=== PATIENT | male | born 1960 | race Caucasian/White ===

== ENCOUNTER 2021-01-14 14:04 | Emergency (ER) | payer OTHER ==
--- NOTE | 2021-01-14 14:57 | XR ---
EXAMINATION TYPE: XR chest 2V DATE OF EXAM: 01/14/2021 COMPARISON: NONE TECHNIQUE: PA and lateral views submitted. HISTORY: Cough FINDINGS: Heart size upper limits of normal with no pleural effusion or pneumothorax. Biapical pleural thickeni ng. Hypertrophic change of the spine.. Coarsened interstitium with subsegmental consolidation at the left lung base. IMPRESSION: 1. Correlate for interstitial pneumonia with left basilar subsegmental consolidation..
[2021-01-14] MEDS ORDERED: ALBUTEROL HFA INHALER INHALATION STA (15:30)
[2021-01-14] MEDS ORDERED: SODIUM CHLORIDE 0.9% 500 ML 500 ML IV STA (15:30)
[2021-01-14] MEDS ORDERED: SODIUM CHLORIDE 0.9% 1,000 ML IV STA (15:30)
[2021-01-14] MEDS ORDERED: DEXAMETHASONE SOD PHOSPHATE 10 MG/ML 1 ML VIAL IV STA (15:31)
--- NOTE | 2021-01-14 15:47 | ED ---
URI HPI - General Chief Complaint: Upper Respiratory Infection Stated Complaint: COVID+,Sent by [facility]cpwan blood clot Time Seen by Provider: 01/14/21 15:18 Source: patient Mode of arrival: ambulatory Limitations: no limitations - History of Present Illness Initial Comments: This 60-year-old male presents complaining of del real virus infection and related symptoms. He states that the symptoms started approximately 10 days ago. He tested +9 days ago. Family members have similar. He states that he is had a slight nonproductive cough. He has had some mild intermittent dyspnea. He does complain of significant fatigue and states that he feels out of sorts mentally at times. He complains of significant sweating episodes but denies any actual fever. There is been no loss of taste or loss of smell. His symptoms are worse with exertion. He denies any nausea vomiting or diarrhea. He has had a decrease in his appetite. He complains of a mild chest burning sensation intermittently over the past 11 days. He has been taking aspirin as well as Tylenol. He denies any other medications thus far. No other complaints or modifying factors. He denies any known pulmonary conditions or cardiac disease. He does have sleep apnea and utilizes a CPAP machine at at bedtime. - Related Data Previous Rx's Medication Instructions Recorded Albuterol Sulfate [Albuterol 4 puff PO Q4H PRN #2 inhaler 01/14/21 Sulfate Hfa] Azithromycin [Zithromax Z-pack] 0 mg PO DIRECTED #6 tab 01/14/21 Dexamethasone [Decadron] 6 mg PO DAILY #7 tablet 01/14/21 Allergies Allergy/AdvReac Type Severity Reaction Status Date / Time No Known Allergies Allergy Verified 01/14/21 14:40 Review of Systems ROS Statement: Those systems with pertinent positive or pertinent negative responses have been documented in the HPI. ROS Other: All systems not noted in ROS Statement are negative. Past Medical History Past Medical History: Diabetes Mellitus, Hypertension History of Any Multi-Drug Resistant Organisms: None Reported Past Surgical History: Appendectomy, Orthopedic Surgery Past Psychological History: No Psychological Hx Reported Smoking Status: Never smoker Past Alcohol Use History: Rare Past Drug Use History: None Reported General Exam - General Exam Comments Initial Comments: Constitutional: Alert and oriented, no apparent distress Vitals: Reviewed, please see nursing notes HEENT: No gross trauma identified, trachea midline, no respiratory distress Neck: No tenderness, good range of motion Heart: Regular rate and rhythm without murmur Lungs: Clear to auscultation bilaterally, no wheezing rhonchi or rales. Slightly diminished breath sounds. Abdomen: No tenderness or peritoneal signs noted, nondistended Back: No tenderness Neurologic: No gross sensory or motor deficits identified Integumentary: No rash or change in pigmentation Musculoskeletal: No leg tenderness or swelling. Psychiatric: Alert and oriented, appropriate mood and affect Limitations: no limitations Course Vital Signs 01/14/21 14:31 Temperature 98.3 F Pulse Rate 67 Respiratory 17 Rate Blood Pressure 137/84 O2 Sat by Pulse 96 Oximetry Medical Decision Making - Medical Decision Making The patient was seen and examined. All diagnostics are reviewed. His tested come back positive. His chest x-ray does show evidence of infiltrates. An IV is established and he is hydrated. He also receives Decadron intravenously as well as albuterol HFA's. The laboratory was all essentially within normal limits except for an elevation of the d-dimer. A CT angiogram of the chest was done and there is no evidence of pulmonary embolism but there does appear to be extensive infiltrative disease consistent with Covid. The patient's oxygenation status has remained stable at 96% and it is felt as though he is stable for discharge home. Nevertheless, return parameters are discussed in detail. It is recommended that he obtain a home pulse oximeter and return if oxygenation is lower than 90%. He will be prescribed Zithromax, dexamethasone, and albuterol HFA. He is agreeable with this plan. - Lab Data Result diagrams: 01/14/21 16:00 01/14/21 16:00 Lab Results 01/14/21 01/14/21 01/14/21 Range/Units 14:49 16:00 16:00 WBC 4.6 (3.8-10.6) k/uL RBC 5.56 (4.30-5.90) m/uL Hgb 17.5 (13.0-17.5) gm/dL Hct 52.1 (39.0-53.0) % MCV 93.7 (80.0-100.0) fL MCH 31.4 (25.0-35.0) pg MCHC 33.6 (31.0-37.0) g/dL RDW 14.1 (11.5-15.5) % Plt Count 150 (150-450) k/uL MPV 8.0 Neutrophils % 68 % Lymphocytes % 23 % Monocytes % 6 % Eosinophils % 0 % Basophils % 1 % Neutrophils # 3.1 (1.3-7.7) k/uL Lymphocytes # 1.0 (1.0-4.8) k/uL Monocytes # 0.3 (0-1.0) k/uL Eosinophils # 0.0 (0-0.7) k/uL Basophils # 0.0 (0-0.2) k/uL PT 10.3 (9.0-12.0) sec INR 1.0 (<1.2) APTT 25.9 (22.0-30.0) sec D-Dimer 0.97 H (<0.60) mg/L FEU Sodium (137-145) mmol/L Potassium (3.5-5.1) mmol/L Chloride (98-107) mmol/L Carbon Dioxide (22-30) mmol/L Anion Gap mmol/L BUN (9-20) mg/dL Creatinine (0.66-1.25) mg/dL Est GFR (CKD-EPI)AfAm (>60 ml/min/1.73 sqM) Est GFR (CKD-EPI)NonAf (>60 ml/min/1.73 sqM) Glucose (74-99) mg/dL Calcium (8.4-10.2) mg/dL Total Bilirubin (0.2-1.3) mg/dL AST (17-59) U/L ALT (4-49) U/L Alkaline Phosphatase (38-126) U/L Troponin I (0.000-0.034) ng/mL Total Protein (6.3-8.2) g/dL Albumin (3.5-5.0) g/dL Coronavirus (PCR) Detected A (Not Detectd) 01/14/21 01/14/21 Range/Units 16:00 16:00 WBC (3.8-10.6) k/uL RBC (4.30-5.90) m/uL Hgb (13.0-17.5) gm/dL Hct (39.0-53.0) % MCV (80.0-100.0) fL MCH (25.0-35.0) pg MCHC (31.0-37.0) g/dL RDW (11.5-15.5) % Plt Count (150-450) k/uL MPV Neutrophils % % Lymphocytes % % Monocytes % % Eosinophils % % Basophils % % Neutrophils # (1.3-7.7) k/uL Lymphocytes # (1.0-4.8) k/uL Monocytes # (0-1.0) k/uL Eosinophils # (0-0.7) k/uL Basophils # (0-0.2) k/uL PT (9.0-12.0) sec INR (<1.2) APTT (22.0-30.0) sec D-Dimer (<0.60) mg/L FEU Sodium 138 (137-145) mmol/L Potassium 4.0 (3.5-5.1) mmol/L Chloride 101 (98-107) mmol/L Carbon Dioxide 25 (22-30) mmol/L Anion Gap 12 mmol/L BUN 21 H (9-20) mg/dL Creatinine 1.20 (0.66-1.25) mg/dL Est GFR (CKD-EPI)AfAm 76 (>60 ml/min/1.73 sqM) Est GFR (CKD-EPI)NonAf 66 (>60 ml/min/1.73 sqM) Glucose 96 (74-99) mg/dL Calcium 9.0 (8.4-10.2) mg/dL Total Bilirubin 0.6 (0.2-1.3) mg/dL AST 67 H (17-59) U/L ALT 43 (4-49) U/L Alkaline Phosphatase 62 (38-126) U/L Troponin I <0.012 (0.000-0.034) ng/mL Total Protein 7.7 (6.3-8.2) g/dL Albumin 4.4 (3.5-5.0) g/dL Coronavirus (PCR) (Not Detectd) Disposition Clinical Impression: Pneumonia due to COVID-19 virus, COVID-19, Chest pain Disposition: HOME SELF-CARE Condition: Good Instructions (If sedation given, give patient instructions): Coronavirus Disease 2019 (COVID-19), Viral Pneumonia (ED) Prescriptions: Albuterol Sulfate [Albuterol Sulfate Hfa] 4 puff PO Q4H PRN #2 inhaler PRN Reason: Shortness Of Breath Dexamethasone [Decadron] 6 mg PO DAILY #7 tablet Azithromycin [Zithromax Z-pack] 0 mg PO DIRECTED #6 tab Is patient prescribed a controlled substance at d/c from ED?: No Referrals: Junior Schwartz MD [Primary Care Provider] - 1-2 days Time of Disposition: 18:54
[2021-01-14 16:40] LABS: Basophils % (A) 1 %; Eosinophils % (A) 0 %; HCT 52.1 % (39.0-53.0); HGB 17.5 gm/dL (13.0-17.5); Lymphocytes % (A) 23 %; MCH 31.4 pg (25.0-35.0); MCHC 33.6 g/dL (31.0-37.0); MCV 93.7 fL (80.0-100.0); Monocytes # (A) 0.3 k/uL (0-1.0); Monocytes % (A) 6 %; Neutrophils # (A) 3.1 k/uL (1.3-7.7); Neutrophils % (A) 68 %; Platelet Count 150 k/uL (150-450); RBC 5.56 m/uL (4.30-5.90); RDW 14.1 % (11.5-15.5); WBC 4.6 k/uL (3.8-10.6)
[2021-01-14 16:56] LABS: Albumin 4.4 g/dL (3.5-5.0); Total Bilirubin 0.6 mg/dL (0.2-1.3); Total Protein 7.7 g/dL (6.3-8.2)
[2021-01-14 17:01] LABS: Partial Thromboplastin Time 25.9 sec (22.0-30.0); Prothrombin Time 10.3 sec (9.0-12.0)
--- NOTE | 2021-01-14 18:34 | CT ---
EXAMINATION TYPE: CT angio chest DATE OF EXAM: 01/14/2021 COMPARISON: None HISTORY: Elevated d-dimer, +covid. CT DLP: 913.3 mGycm Automated exposure control for dose reduction was used. CONTRAST: Performed with IV Contrast, patient injected with 100ml mL of Isovue 370. Images obtained from the thoracic inlet to the diaphragm with IV contrast and 3-D post processed imag es. There is extensive patchy groundglass pulmonary interstitial infiltrates. There is some coalescent de nsity at the lung bases. Heart is enlarged. There is no pericardial effusion. There is no pleural eff usion. There are no hilar masses. There is no mediastinal adenopathy. 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 There is no dissection. I see no evidence of filling defect in the pulmonary arteries. There is gynecomastia. Thoracic spine is intact. Sternum is intact. IMPRESSION: No evidence of pulmonary embolism. Bilateral extensive predominantly interstitial pneumonia. Cardiome waylon. No pulmonary mass.
[2021-01-14 19:32] VITALS: BP 142/87; PULSE 84; RESP 18; TEMP 99.6
== END 2021-01-14 19:32 | disposition home or self-care (01) ==
LOC: EC 14:04
DX: U07.1 COVID-19 (principal); J12.82 Pneumonia due to coronavirus disease 2019; I10 Essential (primary) hypertension; E11.9 Type 2 diabetes mellitus without complications
CPT/HCPCS: 36415; 94640; 93005; 85379; 80053; 84484; 85025; 85610; 85730; 87635; 71046; 71275; 99285; 96374; 96361; J1100; Q9967

== ENCOUNTER 2021-01-26 16:40 | Emergency (ER) | payer OTHER ==
[2021-01-26 16:45] VITALS: TEMP 98.3
--- NOTE | 2021-01-26 17:49 | ED ---
ENT HPI - General Chief complaint: ENT Stated complaint: nosebleed Time Seen by Provider: 01/26/21 16:59 Source: patient, family, RN notes reviewed Mode of arrival: ambulatory Limitations: no limitations - History of Present Illness Initial comments: 60-year-old white male patient, alert and oriented 4 presents to the emergency room with his complaining of bilateral epistaxis that started at 7:00 this morning. Patient states he has been trying homemade packing and unable to stop it is just redirected the flow andswallowing the blood. Patient states he does not want to try to spit it out for fever aspiration. States he just got over Covid pneumonia, symptoms started on January 04 has been cleared by his primary care doctor. Patient has a history of [id number] diabetes, hypertension and has been taking his medications but states that his blood pressure has been labile. Patient states he was being treated when dx with covid with a full dose aspirin and 3 L nasal cannula at home. PMD cleared him on Thursday so now only taking 81 mg aspirin. Patient denies any hematochezia or hematemesis. Denies any headache or fevers. Denies any dizziness or shortness of breath. MD complaint: epistaxis -: hour(s) (0700) Consistency: constant Improves with: none Context-Epistaxis: aspirin use, history of similar (gorge 2005) - Related Data Previous Rx's Medication Instructions Recorded Albuterol Sulfate [Albuterol 4 puff PO Q4H PRN #2 inhaler 01/14/21 Sulfate Hfa] Azithromycin [Zithromax Z-pack] 0 mg PO DIRECTED #6 tab 01/14/21 Dexamethasone [Decadron] 6 mg PO DAILY #7 tablet 01/14/21 Cephalexin [Keflex] 500 mg PO Q6HR 7 Days #28 cap 01/26/21 Allergies Allergy/AdvReac Type Severity Reaction Status Date / Time No Known Allergies Allergy Verified 01/26/21 16:45 Review of Systems ROS Statement: Those systems with pertinent positive or pertinent negative responses have been documented in the HPI. ROS Other: All systems not noted in ROS Statement are negative. Past Medical History Past Medical History: Diabetes Mellitus, Hypertension, Pneumonia Additional Past Medical History / Comment(s): covid 01/23 History of Any Multi-Drug Resistant Organisms: None Reported Past Surgical History: Appendectomy, Orthopedic Surgery Past Psychological History: No Psychological Hx Reported Smoking Status: Never smoker Past Alcohol Use History: Rare Past Drug Use History: None Reported General Exam Limitations: no limitations General appearance: alert, in no apparent distress Head exam: Present: atraumatic, normocephalic, normal inspection Eye exam: Present: normal appearance, PERRL, EOMI. Absent: scleral icterus, conjunctival injection, periorbital swelling ENT exam: Present: mucous membranes moist (blood in oropharynx), other (packing to left nostril from home made of tissue, nose clamp in place since arrival to ER) Neck exam: Present: normal inspection, full ROM. Absent: tenderness, meningismus, lymphadenopathy, thyromegaly Respiratory exam: Present: normal lung sounds bilaterally, rales (bases b/l). Absent: respiratory distress, wheezes, rhonchi, stridor Cardiovascular Exam: Present: regular rate, normal rhythm, normal heart sounds. Absent: systolic murmur, diastolic murmur, rubs, gallop, clicks GI/Abdominal exam: Present: soft, normal bowel sounds. Absent: distended, tenderness, guarding, rebound, rigid Neurological exam: Present: alert, oriented X3 Psychiatric exam: Present: normal affect, normal mood, agitated Skin exam: Present: warm, dry, intact, normal color. Absent: rash Course Vital Signs 01/26/21 01/26/21 16:42 19:06 Temperature 98.3 F Pulse Rate 78 57 L Respiratory 24 18 Rate Blood Pressure 148/86 128/92 O2 Sat by Pulse 94 L 94 L Oximetry - Reevaluation(s) Reevaluation #1: 01/26/21 18:35 Nasal packing to left nostril intact, right nostril not bleeding. There is no blood draining into the oropharynx. We'll continue to monitor Time: 18:35 Procedures - Procedures Initial comment: nasal packing placed to left nostril Medical Decision Making - Medical Decision Making Visualization of left and right nostril shows that there is bleeding to the left side anteriorly no bleeding to the right nostril. Packing to left nostril placed and bleeding controlled. Patient agreeable to being discharged home and follow up with primary care doctor and ENT Dr Moctezuma Thursday. Case discussed with Dr. Bradley, will place patient on Keflex and have him return to emergency room for increased bleeding. Disposition Clinical Impression: Anterior epistaxis Disposition: HOME SELF-CARE Condition: Good Instructions (If sedation given, give patient instructions): Nosebleed (ED) Additional Instructions: Follow-up with Dr. Vera ENT next week and take antibiotics as prescribed untiil packing removed. Prescriptions: Cephalexin [Keflex] 500 mg PO Q6HR 7 Days #28 cap Is patient prescribed a controlled substance at d/c from ED?: No Referrals: Junior Schwartz MD [Primary Care Provider] - 1-2 days Jules Moctezuma MD [STAFF PHYSICIAN] - 1-2 days Time of Disposition: 19:35
[2021-01-26 19:11] VITALS: RESP 18
[2021-01-26 19:44] VITALS: BP 131/90; PULSE 76
== END 2021-01-26 19:44 | disposition home or self-care (01) ==
LOC: EC 16:40
DX: R04.0 Epistaxis (principal); E11.9 Type 2 diabetes mellitus without complications; I10 Essential (primary) hypertension
CPT/HCPCS: 99283

== ENCOUNTER 2021-05-24 21:21 | Inpatient (IN) | payer OTHER ==
[2021-05-24] MEDS ORDERED: DILTIAZEM DRIP BOLUS FROM BAG 1 MG SOLN IV ONE (21:30)
[2021-05-24] MEDS ORDERED: SODIUM CHLORIDE 0.9% 1,000 ML IV STA ×2 (21:30)
--- NOTE | 2021-05-24 21:54 | ED ---
Arrhythmia/Palpitations HPI - General Chief Complaint: Chest Pain Stated Complaint: SVT Time Seen by Provider: 05/24/21 21:24 Source: patient, EMS, RN notes reviewed, old records reviewed Mode of arrival: EMS Limitations: no limitations - History of Present Illness Initial Comments: This is a 60-year-old male to the ER for evaluation today. She presents for evaluation regards to elevated heart rate and not feeling well. Patient is found to be in SVT. Patient is transferred from his primary care doctor's office to the ER for evaluation. Patient has no current chest pain but he has had chest pain with this event in the past. Patient does have diaphoresis and shortness of breath. Patient was admitted at [facility] yesterday for similar complaints did have a stress test was discharged home MD Complaint: rapid heart beat, "heart racing", palpitations -: hour(s) Context: occurred during rest Arrhythmia History: SVT Associated Symptoms: chest pain, diaphoresis Treatments Prior to Arrival: other (none) - Related Data Home Medications Medication Instructions Recorded Confirmed Albuterol Nebulized [Ventolin 3 ml INHALATION RT-TID 05/24/21 05/24/21 Nebulized] Albuterol Sulfate [Albuterol 2 puff PO QID PRN 05/24/21 05/24/21 Sulfate Hfa] Aspirin [[place] Aspirin EC] 81 mg PO DAILY 05/24/21 05/24/21 Atorvastatin [Lipitor] 10 mg PO DAILY 05/24/21 05/24/21 Azelastine HCl [Astepro] 2 spray NASAL BID 05/24/21 05/24/21 Budesonide-Formot 160-4.5 Mcg 2 puff INHALATION RT-BID 05/24/21 05/24/21 [Symbicort 160-4.5 Mcg Inhaler] Cetirizine HCl [Zyrtec] 10 mg PO DAILY 05/24/21 05/24/21 Empagliflozin [Jardiance] 25 mg PO DAILY 05/24/21 05/24/21 Ibuprofen [Motrin Ib] 200 mg PO Q6H PRN 05/24/21 05/24/21 Krill/[place]-3/Dha/Epa/Lipids 1 tab PO DAILY 05/24/21 05/24/21 [Krill Oil 350 mg Softgel] Lansoprazole [Prevacid] 30 mg PO DAILY 05/24/21 05/24/21 Metoprolol Tartrate [Lopressor] 25 mg PO BID 05/24/21 05/24/21 Mupirocin [Mupirocin 2%] 1 applic NASAL BID 05/24/21 05/24/21 Nystatin 100,000Unit/gm Cream 1 applic TOPICAL BID 05/24/21 05/24/21 [Mycostatin Cream] lisinopriL [Zestril] 20 mg PO DAILY 05/24/21 05/24/21 Allergies Allergy/AdvReac Type Severity Reaction Status Date / Time No Known Allergies Allergy Verified 05/24/21 23:42 Review of Systems ROS Statement: Those systems with pertinent positive or pertinent negative responses have been documented in the HPI. ROS Other: All systems not noted in ROS Statement are negative. Past Medical History Past Medical History: Diabetes Mellitus, Hypertension, Pneumonia Additional Past Medical History / Comment(s): covid 01/23 History of Any Multi-Drug Resistant Organisms: None Reported Past Surgical History: Appendectomy, Orthopedic Surgery Past Psychological History: No Psychological Hx Reported Smoking Status: Former smoker Past Alcohol Use History: Rare Past Drug Use History: None Reported General Exam Limitations: no limitations General appearance: alert, in no apparent distress, anxious Head exam: Present: atraumatic, normocephalic, normal inspection Eye exam: Present: normal appearance, PERRL, EOMI. Absent: scleral icterus, conjunctival injection, periorbital swelling ENT exam: Present: normal exam, mucous membranes dry, mucous membranes moist Neck exam: Present: normal inspection. Absent: tenderness, meningismus, lymphadenopathy Respiratory exam: Present: normal lung sounds bilaterally. Absent: respiratory distress, wheezes, rales, rhonchi, stridor Cardiovascular Exam: Present: tachycardia, irregular rhythm, normal heart sounds. Absent: systolic murmur, diastolic murmur, rubs, gallop, clicks GI/Abdominal exam: Present: soft, normal bowel sounds. Absent: distended, tenderness, guarding, rebound, rigid Extremities exam: Present: normal inspection, full ROM, normal capillary refill. Absent: tenderness, pedal edema, joint swelling, calf tenderness Back exam: Present: normal inspection Neurological exam: Present: alert, oriented X3, CN II-XII intact Psychiatric exam: Present: normal affect, normal mood Skin exam: Present: warm, dry, intact, normal color. Absent: rash Course Vital Signs 05/24/21 05/24/21 05/24/21 21:25 21:45 22:00 Temperature 98.3 F Pulse Rate 152 H 73 150 H Respiratory 18 18 18 Rate Blood Pressure 143/112 117/83 131/87 O2 Sat by Pulse 96 96 96 Oximetry 05/24/21 05/24/21 05/24/21 22:15 22:30 22:32 Temperature Pulse Rate 141 H 140 H 54 L Respiratory 18 18 18 Rate Blood Pressure 118/89 116/82 114/79 O2 Sat by Pulse 96 94 L Oximetry 05/24/21 05/25/21 23:00 00:02 Temperature 98.2 F Pulse Rate 52 L Respiratory 18 18 Rate Blood Pressure 112/69 118/75 O2 Sat by Pulse 96 Oximetry - Reevaluation(s) Reevaluation #1: 05/25/21 00:38 Medical record is reviewed Reevaluation #2: 05/25/21 00:38 Patient has difficulty control SVT in the ER with Cardizem symptoms do improve Reevaluation #3: 05/25/21 00:41 Patient informed results and questions answered - Consultations Consultation #1: Spoke with cardiology regarding SVT and treatment plan, Consultation #2: Spoke with EM regarding admission there agreeable EKG Findings - EKG Comments: EKG Findings:: EKG shows SVT 152 QRS 92 QTC 480 - EKG Results: EKG: interpreted by ERMD EKG shows: sinus rhythm (EKG shows sinus rhythm 79 DE 212 QRS 72 QTC 431) Medical Decision Making - Medical Decision Making 60 male DF for evaluation, he is on recurrent evaluation of SVT. Patient has SVT is resolved here in the ER looks to be underlying atrial fibrillation, patient be admitted for likely heart catheterization in the morning - Lab Data Result diagrams: 05/24/21 22:15 05/24/21 22:15 Lab Results 05/24/21 05/24/21 05/24/21 Range/Units 22:15 22:15 22:15 WBC 12.0 H (3.8-10.6) k/uL RBC 5.66 (4.30-5.90) m/uL Hgb 18.4 H (13.0-17.5) gm/dL Hct 53.8 H (39.0-53.0) % MCV 95.1 (80.0-100.0) fL MCH 32.5 (25.0-35.0) pg MCHC 34.2 (31.0-37.0) g/dL RDW 13.7 (11.5-15.5) % Plt Count 189 (150-450) k/uL MPV 8.5 Neutrophils % 74 % Lymphocytes % 13 % Monocytes % 8 % Eosinophils % 3 % Basophils % 1 % Neutrophils # 8.9 H (1.3-7.7) k/uL Lymphocytes # 1.5 (1.0-4.8) k/uL Monocytes # 1.0 (0-1.0) k/uL Eosinophils # 0.3 (0-0.7) k/uL Basophils # 0.1 (0-0.2) k/uL PT 10.6 (9.0-12.0) sec INR 1.0 (<1.2) APTT 24.8 (22.0-30.0) sec Sodium 136 L (137-145) mmol/L Potassium 4.6 (3.5-5.1) mmol/L Chloride 105 (98-107) mmol/L Carbon Dioxide 21 L (22-30) mmol/L Anion Gap 10 mmol/L BUN 14 (9-20) mg/dL Creatinine 0.91 (0.66-1.25) mg/dL Est GFR (CKD-EPI)AfAm >90 (>60 ml/min/1.73 sqM) Est GFR (CKD-EPI)NonAf >90 (>60 ml/min/1.73 sqM) Glucose 118 H (74-99) mg/dL Calcium 9.4 (8.4-10.2) mg/dL Phosphorus 3.5 (2.5-4.5) mg/dL Magnesium 2.1 (1.6-2.3) mg/dL Total Bilirubin 0.4 (0.2-1.3) mg/dL AST 39 (17-59) U/L ALT 25 (4-49) U/L Alkaline Phosphatase 65 (38-126) U/L Creatine Kinase 184 H (55-170) U/L CK-MB (CK-2) (0.0-2.4) ng/mL Troponin I (0.000-0.034) ng/mL NT-Pro-B Natriuret Pep pg/mL Total Protein 7.2 (6.3-8.2) g/dL Albumin 4.3 (3.5-5.0) g/dL TSH 5.290 H (0.465-4.680) mIU/L 05/24/21 05/24/21 Range/Units 22:15 22:15 WBC (3.8-10.6) k/uL RBC (4.30-5.90) m/uL Hgb (13.0-17.5) gm/dL Hct (39.0-53.0) % MCV (80.0-100.0) fL MCH (25.0-35.0) pg MCHC (31.0-37.0) g/dL RDW (11.5-15.5) % Plt Count (150-450) k/uL MPV Neutrophils % % Lymphocytes % % Monocytes % % Eosinophils % % Basophils % % Neutrophils # (1.3-7.7) k/uL Lymphocytes # (1.0-4.8) k/uL Monocytes # (0-1.0) k/uL Eosinophils # (0-0.7) k/uL Basophils # (0-0.2) k/uL PT (9.0-12.0) sec INR (<1.2) APTT (22.0-30.0) sec Sodium (137-145) mmol/L Potassium (3.5-5.1) mmol/L Chloride (98-107) mmol/L Carbon Dioxide (22-30) mmol/L Anion Gap mmol/L BUN (9-20) mg/dL Creatinine (0.66-1.25) mg/dL Est GFR (CKD-EPI)AfAm (>60 ml/min/1.73 sqM) Est GFR (CKD-EPI)NonAf (>60 ml/min/1.73 sqM) Glucose (74-99) mg/dL Calcium (8.4-10.2) mg/dL Phosphorus (2.5-4.5) mg/dL Magnesium (1.6-2.3) mg/dL Total Bilirubin (0.2-1.3) mg/dL AST (17-59) U/L ALT (4-49) U/L Alkaline Phosphatase (38-126) U/L Creatine Kinase (55-170) U/L CK-MB (CK-2) 1.2 (0.0-2.4) ng/mL Troponin I 0.050 H* (0.000-0.034) ng/mL NT-Pro-B Natriuret Pep 314 pg/mL Total Protein (6.3-8.2) g/dL Albumin (3.5-5.0) g/dL TSH (0.465-4.680) mIU/L Critical Care Time Critical Care Time: Yes Total Critical Care Time: 31 Disposition Clinical Impression: Chest pain, SVT (supraventricular tachycardia), Atrial fibrillation with RVR Disposition: ADMITTED IP TO THIS HOSP Condition: Serious Is patient prescribed a controlled substance at d/c from ED?: No
[2021-05-24] MEDS: METOPROLOL TARTRATE 5 MG/5 ML VIAL IVP STA ×2 (21:59→22:14)
[2021-05-24] MEDS: DILTIAZEM 125 MG in SODIUM CHLORIDE 0.9% 100 ML IV SCH (22:31)
[2021-05-24 22:46] LABS: Basophils # (A) 0.1 k/uL (0-0.2); Basophils % (A) 1 %; Eosinophils # (A) 0.3 k/uL (0-0.7); Eosinophils % (A) 3 %; HCT 53.8 % (39.0-53.0); HGB 18.4 gm/dL (13.0-17.5); Lymphocytes # (A) 1.5 k/uL (1.0-4.8); Lymphocytes % (A) 13 %; MCH 32.5 pg (25.0-35.0); MCHC 34.2 g/dL (31.0-37.0); MCV 95.1 fL (80.0-100.0); Mean Platelet Volume 8.5; Monocytes % (A) 8 %; Neutrophils # (A) 8.9 k/uL (1.3-7.7); Neutrophils % (A) 74 %; Platelet Count 189 k/uL (150-450); RBC 5.66 m/uL (4.30-5.90); RDW 13.7 % (11.5-15.5)
[2021-05-24 22:54] LABS: ALT 25 U/L (4-49); African American GFR (CKD) >90 (>60 ml/min/1.73 sqM); Albumin 4.3 g/dL (3.5-5.0); Anion Gap 10 mmol/L; Blood Urea Nitrogen 14 mg/dL (9-20); Calcium 9.4 mg/dL (8.4-10.2); Carbon Dioxide 21 mmol/L (22-30); Chloride 105 mmol/L (98-107); Glucose 118 mg/dL (74-99); Non-African American GFR(CKD) >90 (>60 ml/min/1.73 sqM); Sodium 136 mmol/L (137-145); Total Bilirubin 0.4 mg/dL (0.2-1.3); Total Protein 7.2 g/dL (6.3-8.2)
[2021-05-24 22:56] LABS: Partial Thromboplastin Time 24.8 sec (22.0-30.0); Prothrombin Time 10.6 sec (9.0-12.0)
[2021-05-24] MEDS ORDERED: NITROGLYCERIN SL TABS 0.4 MG TAB SUBLINGUAL PRN (22:58)
[2021-05-24] MEDS ORDERED: HEPARIN SODIUM 1,000 UN/ML (10ML VL) IV ONE (22:58)
[2021-05-24] MEDS ORDERED: ASPIRIN 81 MG PO STA (22:58)
[2021-05-24 23:06] LABS: Creatine Kinase MB 1.2 ng/mL (0.0-2.4)
[2021-05-24 23:12] LABS: Troponin I 0.05 ng/mL (0.000-0.034)
[2021-05-24 23:18] LABS: Magnesium 2.1 mg/dL (1.6-2.3); Phosphorus 3.5 mg/dL (2.5-4.5); Potassium 4.6 mmol/L (3.5-5.1)
[2021-05-24 23:19] LABS: AST 39 U/L (17-59); Alkaline Phosphatase 65 U/L (38-126)
[2021-05-24 23:48] LABS: Creatine Kinase 184 U/L (55-170)
[2021-05-25] MEDS: HEPARIN SOD,PORK IN 0.45% NACL 25,000 UNIT in 0.45% NACL 1 250ML.BAG IV SCH ×2 (00:08→22:00)
--- NOTE | 2021-05-25 05:59 | P.HPIM ---
History of Present Illness H&P Date: 05/25/21 Chief Complaint: SVT 60-year-old male with diabetes mellitus type 2 well controlled, hypertension Patient comes in from his doctor's office after found to be in SVT. He does report history of palpitations in the past but denies any syncope. Yesterday he was at [facility] emergency room for similar problem. He had some workup done there including a stress test which the radiologist interpreted as positive however the pump press operator did not concur with the radiologist impression and decided to discharge the patient's. His troponins and EKGs were both nega tive at [facility] yesterday. His EF on the stress test was estimated to be around 64% he also had CT angiogram of the chest which was negative for acute PE. Patient was discharged on 6:30 PM on Thursday he went to his PCP office around 7:15 PM where his doctor found him to be in SVT again with his heart rate being in the 150s. Again the patient denied any chest pain at that point no shortness of breath no diaphoresis. EMS was notified and patient was brought to our hospital he was again found to be in SVT/A. fib with RVR patient was started on Cardizem drip and heparin and was admitted for cardiology evaluation in the morning and possible left heart cath. His troponins are s lightly positive. TSH is elevated and free T4 was low from [facility]. UA was negative at [facility]. He was found to have hypokalemia and hypomagnesemia at [facility] and was replaced over there Patient denies any heavy smoking he would occasionally smoke a cigar which she hasn't done an long time. He denies any drug abuse he denies any heavy alcohol use. Patient denies any changes in his medications or using any herbs. He denies any recent travel denies any leg swelling denies any syncope or near syncope. Patient denies any GI bleeding or history of blood clots. Patient did have Covid infection back in January of this year. 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 Review of Systems Pertinent positives as noted in HPI. All other systems were reviewed and are negative Past Medical History Past Medical History: Diabetes Mellitus, Hypertension, Pneumonia Additional Past Medical History / Comment(s): covid 01/23 History of Any Multi-Drug Resistant Organisms: None Reported Past Surgical History: Appendectomy, Orthopedic Surgery Past Psychological History: No Psychological Hx Reported Smoking Status: Former smoker Past Alcohol Use History: Rare Past Drug Use History: None Reported - Past Family History Family Additional Family Medical History / Comment(s): Mother with A. fib, father with sudden unknown cause. Patient denies any premature CAD history in the family Medications and Allergies Home Medications Medication Instructions Recorded Confirmed Type Albuterol Nebulized [Ventolin 3 ml INHALATION RT-TID 05/24/21 05/24/21 History Nebulized] Albuterol Sulfate [Albuterol 2 puff PO QID PRN 05/24/21 05/24/21 History Sulfate Hfa] Aspirin [[place] Aspirin EC] 81 mg PO DAILY 05/24/21 05/24/21 History Atorvastatin [Lipitor] 10 mg PO DAILY 05/24/21 05/24/21 History Azelastine HCl [Astepro] 2 spray NASAL BID 05/24/21 05/24/21 History Budesonide-Formot 160-4.5 Mcg 2 puff INHALATION RT-BID 05/24/21 05/24/21 History [Symbicort 160-4.5 Mcg Inhaler] Cetirizine HCl [Zyrtec] 10 mg PO DAILY 05/24/21 05/24/21 History Empagliflozin [Jardiance] 25 mg PO DAILY 05/24/21 05/24/21 History Ibuprofen [Motrin Ib] 200 mg PO Q6H PRN 05/24/21 05/24/21 History Krill/[place]-3/Dha/Epa/Lipids 1 tab PO DAILY 05/24/21 05/24/21 History [Krill Oil 350 mg Softgel] Lansoprazole [Prevacid] 30 mg PO DAILY 05/24/21 05/24/21 History Metoprolol Tartrate [Lopressor] 25 mg PO BID 05/24/21 05/24/21 History Mupirocin [Mupirocin 2%] 1 applic NASAL BID 05/24/21 05/24/21 History Nystatin 100,000Unit/gm Cream 1 applic TOPICAL BID 05/24/21 05/24/21 History [Mycostatin Cream] lisinopriL [Zestril] 20 mg PO DAILY 05/24/21 05/24/21 History Allergies Allergy/AdvReac Type Severity Reaction Status Date / Time No Known Allergies Allergy Verified 05/24/21 23:42 Physical Exam Vitals: Vital Signs Temp Pulse Resp BP Pulse Ox 05/25/21 04:00 98.4 F 41 L 18 104/66 93 L 05/25/21 03:00 46 L 18 05/25/21 02:00 51 L 18 05/25/21 01:00 50 L 18 05/25/21 00:02 98.2 F 18 118/75 96 05/24/21 23:00 52 L 18 112/69 05/24/21 22:32 54 L 18 114/79 94 L 05/24/21 22:30 140 H 18 116/82 96 05/24/21 22:15 141 H 18 118/89 05/24/21 22:00 150 H 18 131/87 96 05/24/21 21:45 73 18 117/83 96 05/24/21 21:25 98.3 F 152 H 18 143/112 96 Intake and Output 05/24/21 05/24/21 05/25/21 14:59 22:59 06:59 Intake Total 0.25 Balance 0.25 Intake: Intake, IV Titration 0.25 Amount Diltiazem 125 mg In 0.25 Sodium Chloride 0.9% 100 ml @ 5 MG/HR 5 mls/hr IV .Q24H [facility] Rx#:[id number] Other: Weight 153.314 kg Constitutional: No acute distress, conversant, pleasant Eyes: Anicteric sclerae, moist conjunctiva, Pupils equal round reactive to light ENMT: NC/AT Oropharynx clear, no erythema, or exudates Neck: Supple, FROM, no masses, or JVD No carotid bruits No thyromegaly Lungs: Clear to auscultation Clear to percussion Normal respiratory effort, no accessory muscle use Cardiovascular: Heart regular in rate and rhythm, No murmurs, gallops, or rubs No peripheral edema Abdominal: Soft Nontender, no guarding, rebound or rigidity Abdomen moving with respiration Normoactive bowel sounds No hepatomegaly, No splenomegaly No palpable mass No abdominal wall hernia noted Skin: Normal temperature, tone, texture, turgor No induration No subcutaneous nodules No rash, lesions No ulcers Extremities: No digital cyanosis No clubbing Pedal pulses intact and symmetrical Radial pulses intact and symmetrical No calf tenderness Psychiatric: Alert and oriented to person, place and time Appropriate affect fair judgement Neuro Muscles Strength 5/5 in all 4 extremities Sensation to light touch grossly present throughout Cranial nerves II-XII grossly intact No focal sensory deficits Lymphatics: no palpable cervical or supraclavicular , or inguinal lymph nodes Results CBC & Chem 7: 05/24/21 22:15 05/24/21 22:15 Labs: Abnormal Lab Results - Last 24 Hours (Table) 05/24/21 05/24/21 05/24/21 Range/Units 22:15 22:15 22:15 WBC 12.0 H (3.8-10.6) k/uL Hgb 18.4 H (13.0-17.5) gm/dL Hct 53.8 H (39.0-53.0) % Neutrophils # 8.9 H (1.3-7.7) k/uL Sodium 136 L (137-145) mmol/L Carbon Dioxide 21 L (22-30) mmol/L Glucose 118 H (74-99) mg/dL Creatine Kinase 184 H (55-170) U/L Troponin I 0.050 H* (0.000-0.034) ng/mL TSH 5.290 H (0.465-4.680) mIU/L 05/25/21 Range/Units 02:14 WBC (3.8-10.6) k/uL Hgb (13.0-17.5) gm/dL Hct (39.0-53.0) % Neutrophils # (1.3-7.7) k/uL Sodium (137-145) mmol/L Carbon Dioxide (22-30) mmol/L Glucose (74-99) mg/dL Creatine Kinase (55-170) U/L Troponin I 0.075 H* (0.000-0.034) ng/mL TSH (0.465-4.680) mIU/L Assessment and Plan Assessment: SVT/A. fib with RVR Patient currently on Cardizem drip and heparin drip Trend troponins Cardiac monitoring Cardiology evaluated May 24, patient had positive stress test at [facility] however cardiology disagreed with radiologist's interpretation and decided to discharge the patient Resume aspirin, statin Consider outpatient follow-up with sleep study patient has history of sleep apnea Suspected hypothyroidism Follow-up free T4 [facility] TSH was elevated, free T4 was low Consider starting patient on levothyroxine and close follow-up outpatient Chronic conditions Type 2 diabetes mellitus well-controlled A1c 5.7, insulin sliding scale This ascending aortic aneurysm continue outpatient follow-up Hypertension controlled Hyperlipidemia continue statin Preformed a thorough record review from recent hospitalization from [facility] is summarized in HPI CODE STATUS: Full code DVT prophylaxis: On heparin drip Discussed with: Patient, ER, RN Anticipated length of stay less than than [address]: Home A total of 65 minutes was spent on the care of this complex patient more than 50% of the time was spent in counseling and care coordination.
[2021-05-25] MEDS ORDERED: HEPARIN SODIUM,PORCINE 10,000 UNIT in SODIUM CHLORIDE 0.9% 1,000 ML IRRIGATION PRN (07:00)
[2021-05-25] MEDS ORDERED: HEPARIN SODIUM,PORCINE 2,500 UNIT in SODIUM CHLORIDE 0.9% 250 ML IRRIGATION PRN (07:00)
[2021-05-25] MEDS ORDERED: HEPARIN SODIUM 1,000 UN/ML (10ML VL) IV PRN (07:22)
[2021-05-25] MEDS ORDERED: ATORVASTATIN 40 MG TAB PO SCH (09:00)
[2021-05-25] MEDS ORDERED: ASPIRIN 325 MG TAB PO SCH (09:00)
[2021-05-25] MEDS ORDERED: NON FORMULARY DRUG (Aspirin [St. Joseph Aspirin Ec] 81 MG Tab) PO SCH (09:00)
[2021-05-25] MEDS: METOPROLOL TARTRATE 25 MG TAB PO SCH ×5 (09:23→23:45)
[2021-05-25] MEDS: INSULIN ASPART (NovoLOG) 100 UNIT/ML VIAL SQ SCH ×4 (09:31→21:59)
[2021-05-25] MEDS: lisinopriL 20 MG TAB PO SCH (09:34)
[2021-05-25] MEDS: PANTOPRAZOLE 40 MG TABLET PO SCH (09:34)
[2021-05-25 09:41] LABS: Glucose,Whole Blood 94 mg/dL (75-99)
[2021-05-25 09:57] LABS: Chol/HDL Ratio 4.04
[2021-05-25] MEDS ORDERED: ATORVASTATIN 80 MG TAB PO STA (10:05)
[2021-05-25] MEDS ORDERED: ALPRAZolam 0.5 MG TAB PO PRN ×2 (10:05→15:13)
[2021-05-25] MEDS ORDERED: ASPIRIN 325 MG TAB PO STA (10:05)
[2021-05-25] MEDS ORDERED: NITROGLYCERIN SL TABS 0.4 MG TAB SUBLINGUAL PRN ×2 (10:05→15:13)
[2021-05-25] MEDS ORDERED: SODIUM CHLORIDE 0.9% 1,000 ML in EMPTY BAG 1 BAG IV ONE ×2 (10:05→23:00)
[2021-05-25] MEDS ORDERED: ALPRAZolam 0.25 MG TAB PO PRN ×2 (10:05→15:13)
--- NOTE | 2021-05-25 10:38 | P.CRDCN ---
History of Present Illness Consult date: 05/25/21 Reason for Consult (text): SVT, elevated troponins History of present illness: The patient is a 60-year-old male who previously followed with Dr. LEELA Barrientos however has not been seen in over 5 years, who presented to the emergency room with SVT. The patient was recently admitted to [facility] with new onset of SVT. The patient states he was admitted overnight and underwent stress testing, which was shown to be mildly abnormal. Cardiology discharge the patient for outpatient follow-up. The patient was in the process of being evaluated by his primary care provider on Thursday, when he was again found to have an elevated heart rate. He was given a beta jessi and transferred to the hospital for further evaluation. 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 Troponins mildly abnormal. The patient was interviewed and examined sitting comfortably on the side of the bed. The patient states his initial symptoms started back in January when he was ill with COVID-19. He again had a second episode in the month of April while on a work trip where he experienced palpitations, however they resolve spontaneously. He states he was asymptomatic yesterday while at his primary care provider's office, however his initial presentation to [facility] was palpitations. He denies any chest pain or chest pressure. No back pain, jaw pain, or radiation down his left arm. DIAGNOSTICS: EKG shows AVNRT with spontaneous conversion to sinus bradycardia with heart rates in the 40s Chest x-ray shows no evidence of cardiopulmonary disease Laboratory data: WBC 12.0, hemoglobin 18.4, hematocrit 53.8, platelet 189, sodium 136, potassium 4.6, BUN 14, creatinine 0.91, AST 39, ALT 25, CK 184, troponin 0.05, 0.07. 0.05, BNP 314, LDL 52, HDL 28, triglycerides 165, TSH 5.2 Vital signs: Temp 98.6 respectively, respiratory rate 18, pulse rate 48, blood pressure 122/72, SpO2 95% on room air PAST MEDICAL HISTORY: Obesity, obstructive sleep apnea with CPAP, diabetes mellitus, hypertension, ascending aortic aneurysm REVIEW OF SYSTEMS: No fever or chills. No cough or expectoration. No diaphoresis. Patient denies headache, dizziness, blurred vision, double vision. Patient denies any stomach discomfort. No nausea, vomiting. No hematochezia. No hematemesis. Denies any black stools or blood in his stools. Denies dysuria or hematuria. No muscle weakness or numbness. Positive for palpitations, now resolved. Denies chest pain or chest pressure. PHYSICAL EXAMINATION: This is a 60-year-old ms\ольга in no apparent distress at the time of my examination. HEENT: Head is atraumatic, normocephalic. Pupils are equal, round. Sclerae anicteric. Conjunctivae are clear. Mucous membranes of the mouth are moist. Neck is supple. There is no jugular venous distention. No carotid bruit is heard. CHEST EXAMINATION: Lungs are clear to auscultation. No chest wall tenderness is noted on palpation or with deep breathing. HEART EXAMINATION: Heart regular rate and rhythm. S1, S2 heard. No murmurs, gallops or rub. ABDOMEN: Soft, nontender. Bowel sounds are heard. No organomegaly noted. EXTREMITIES: 2+ peripheral pulses with no evidence of peripheral edema and no calf tenderness noted. NEUROLOGIC EXAMINATION: Patient is awake, alert and oriented x3. 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 Plan of care has been reviewed and agreed upon by Dr Le. Past Medical History Past Medical History: Diabetes Mellitus, Hypertension, Pneumonia Additional Past Medical History / Comment(s): covid 01/23 History of Any Multi-Drug Resistant Organisms: None Reported Past Surgical History: Appendectomy, Orthopedic Surgery Past Psychological History: No Psychological Hx Reported Smoking Status: Former smoker Past Alcohol Use History: Rare Past Drug Use History: None Reported - Past Family History Family Additional Family Medical History / Comment(s): Mother with A. fib, father with sudden unknown cause. Patient denies any premature CAD history in the family Medications and Allergies Home Medications Medication Instructions Recorded Confirmed Type Albuterol Nebulized [Ventolin 3 ml INHALATION RT-TID 05/24/21 05/24/21 History Nebulized] Albuterol Sulfate [Albuterol 2 puff PO QID PRN 05/24/21 05/24/21 History Sulfate Hfa] Aspirin [[place] Aspirin EC] 81 mg PO DAILY 05/24/21 05/24/21 History Atorvastatin [Lipitor] 10 mg PO DAILY 05/24/21 05/24/21 History Azelastine HCl [Astepro] 2 spray NASAL BID 05/24/21 05/24/21 History Budesonide-Formot 160-4.5 Mcg 2 puff INHALATION RT-BID 05/24/21 05/24/21 History [Symbicort 160-4.5 Mcg Inhaler] Cetirizine HCl [Zyrtec] 10 mg PO DAILY 05/24/21 05/24/21 History Empagliflozin [Jardiance] 25 mg PO DAILY 05/24/21 05/24/21 History Ibuprofen [Motrin Ib] 200 mg PO Q6H PRN 05/24/21 05/24/21 History Krill/[place]-3/Dha/Epa/Lipids 1 tab PO DAILY 05/24/21 05/24/21 History [Krill Oil 350 mg Softgel] Lansoprazole [Prevacid] 30 mg PO DAILY 05/24/21 05/24/21 History Metoprolol Tartrate [Lopressor] 25 mg PO BID 05/24/21 05/24/21 History Mupirocin [Mupirocin 2%] 1 applic NASAL BID 05/24/21 05/24/21 History Nystatin 100,000Unit/gm Cream 1 applic TOPICAL BID 05/24/21 05/24/21 History [Mycostatin Cream] lisinopriL [Zestril] 20 mg PO DAILY 05/24/21 05/24/21 History Allergies Allergy/AdvReac Type Severity Reaction Status Date / Time No Known Allergies Allergy Verified 05/24/21 23:42 Physical Exam Vitals: Vital Signs Temp Pulse Resp BP Pulse Ox 05/25/21 09:00 42 L 18 95 05/25/21 08:00 98.6 F 48 L 18 122/72 95 05/25/21 04:00 98.4 F 41 L 18 104/66 93 L 05/25/21 03:00 46 L 18 05/25/21 02:00 51 L 18 05/25/21 01:00 50 L 18 05/25/21 00:02 98.2 F 18 118/75 96 05/24/21 23:00 52 L 18 112/69 05/24/21 22:32 54 L 18 114/79 94 L 05/24/21 22:30 140 H 18 116/82 96 05/24/21 22:15 141 H 18 118/89 05/24/21 22:00 150 H 18 131/87 96 05/24/21 21:45 73 18 117/83 96 05/24/21 21:25 98.3 F 152 H 18 143/112 96 Intake and Output 05/24/21 05/25/21 05/25/21 22:59 06:59 14:59 Intake Total 0.25 71.86 Balance 0.25 71.86 Intake: Intake, IV Titration 0.25 71.86 Amount Diltiazem 125 mg In 0.25 Sodium Chloride 0.9% 100 ml @ 5 MG/HR 5 mls/hr IV .Q24H [facility] Rx#:[id number] Heparin Sod,Pork in 0.45% 71.86 NaCl 25,000 unit In 0.45 % NaCl 1 250ml.bag @ 6.54 UNITS/KG/HR 10.027 mls/ hr IV .Q24H [facility] Rx#: [id number] Other: Weight 153.314 kg Results 05/24/21 22:15 05/24/21 22:15 Cardiac Enzymes 05/24/21 05/24/21 05/25/21 Range/Units 22:15 22:15 02:14 AST 39 (17-59) U/L CK-MB (CK-2) 1.2 (0.0-2.4) ng/mL Troponin I 0.050 H* 0.075 H* (0.000-0.034) ng/mL 05/25/21 Range/Units 05:42 AST (17-59) U/L CK-MB (CK-2) (0.0-2.4) ng/mL Troponin I 0.051 H* (0.000-0.034) ng/mL Coagulation 05/24/21 05/25/21 Range/Units 22:15 05:42 PT 10.6 (9.0-12.0) sec APTT 24.8 31.1 H (22.0-30.0) sec Lipids 05/25/21 Range/Units 05:42 Triglycerides 165.0 H (0.0-149.0) mg/dL Cholesterol 113 (0-200) mg/dL HDL Cholesterol 28.0 L (40.0-60.0) mg/dL Cholesterol/HDL Ratio 4.04 CBC 05/24/21 Range/Units 22:15 WBC 12.0 H (3.8-10.6) k/uL RBC 5.66 (4.30-5.90) m/uL Hgb 18.4 H (13.0-17.5) gm/dL Hct 53.8 H (39.0-53.0) % Plt Count 189 (150-450) k/uL Comprehensive Metabolic Panel 05/24/21 Range/Units 22:15 Sodium 136 L (137-145) mmol/L Potassium 4.6 (3.5-5.1) mmol/L Chloride 105 (98-107) mmol/L Carbon Dioxide 21 L (22-30) mmol/L BUN 14 (9-20) mg/dL Creatinine 0.91 (0.66-1.25) mg/dL Glucose 118 H (74-99) mg/dL Calcium 9.4 (8.4-10.2) mg/dL AST 39 (17-59) U/L ALT 25 (4-49) U/L Alkaline Phosphatase 65 (38-126) U/L Total Protein 7.2 (6.3-8.2) g/dL Albumin 4.3 (3.5-5.0) g/dL Current Medications Generic Name Dose Route Start Last Admin Trade Name Freq PRN Reason Stop Dose Admin Alprazolam 0.25 mg 05/25/21 10:05 Alprazolam 0.25 Mg Tab PO Q6HR PRN Mild Anxiety Alprazolam 0.5 mg 05/25/21 10:05 Alprazolam 0.5 Mg Tab PO Q6HR PRN Moderate Anxiety Aspirin 325 mg 05/25/21 09:00 05/25/21 09:34 Aspirin 325 Mg Tab PO 325 mg DAILY AMINTA Administration Atorvastatin Calcium 40 mg 05/25/21 09:00 05/25/21 09:34 Atorvastatin 40 Mg Tab PO 40 mg DAILY AMINTA Administration Heparin Sodium (Porcine) 0 unit 05/25/21 07:22 05/25/21 07:28 Heparin Sodium 1,000 Un/Ml (10ml Vl) IV 4,000 unit Q6HR PRN Administration Low PTT Protocol Diltiazem HCl 125 mg/ Sodium 125 mls @ 5 mls/hr 05/24/21 21:30 05/24/21 22:34 Chloride IV 0 mg/hr .Q24H AMINTA 0 mls/hr Infusion 5 MG/HR Heparin Sodium/Sodium Chloride 250 mls @ 10.027 mls/hr 05/24/21 23:00 05/25/21 07:18 25,000 unit/ Sodium Chloride IV 9.54 units/kg/hr .Q24H [facility] 14.626 mls/hr Titration Protocol 6.54 UNITS/KG/HR Sodium Chloride 1,000 ml/ IV 1,000 mls @ 153.314 mls/hr 05/25/21 10:05 Solution IV 05/25/21 16:36 .Q6H32M ONE 1 ML/KG/HR Heparin Sodium (Porcine) 10, 1,001 mls @ 999 mls/hr 05/25/21 07:00 000 unit/ Sodium Chloride IRRIGATION 05/25/21 20:00 ONCE PRN INTRA-OP Heparin Sodium (Porcine) 2,500 250.5 mls @ 250 mls/hr 05/25/21 07:00 unit/ Sodium Chloride IRRIGATION 05/25/21 23:00 ONCE PRN INTRA-OP Insulin Aspart 0 unit 05/25/21 07:30 05/25/21 09:31 Insulin Aspart (Novolog) 100 Unit/Ml Vial SQ Not Given ACHS AMINTA Protocol Lisinopril 20 mg 05/25/21 09:00 05/25/21 09:34 Lisinopril 20 Mg Tab PO 20 mg DAILY AMINTA Administration Metoprolol Tartrate 25 mg 05/25/21 09:00 Metoprolol Tartrate 25 Mg Tab PO BID AMINTA Metoprolol Tartrate 25 mg 05/25/21 09:00 05/25/21 09:23 Metoprolol Tartrate 25 Mg Tab PO Not Given BID AMINTA Nitroglycerin 0.4 mg 05/24/21 22:58 Nitroglycerin Sl Tabs 0.4 Mg Tab SUBLINGUAL Q5M PRN Chest Pain Pantoprazole Sodium 40 mg 05/25/21 09:00 05/25/21 09:34 Pantoprazole 40 Mg Tablet PO 40 mg DAILY AMINTA Administration Intake and Output 05/24/21 05/25/21 05/25/21 22:59 06:59 14:59 Intake Total 0.25 71.86 Balance 0.25 71.86 Intake: Intake, IV Titration 0.25 71.86 Amount Diltiazem 125 mg In 0.25 Sodium Chloride 0.9% 100 ml @ 5 MG/HR 5 mls/hr IV .Q24H [facility] Rx#:[id number] Heparin Sod,Pork in 0.45% 71.86 NaCl 25,000 unit In 0.45 % NaCl 1 250ml.bag @ 6.54 UNITS/KG/HR 10.027 mls/ hr IV .Q24H [facility] Rx#: [id number] Other: Weight 153.314 kg 05/24/21 22:15 05/24/21 22:15
--- NOTE | 2021-05-25 15:47 | ECHOF ---
Referral Reason:arrhythmia MEASUREMENTS -------- HEIGHT: 195.6 cm WEIGHT: 153.3 kg BP: 104/66 IVSd: 1.7 cm (0.6 - 1.1) LVIDd: 3.4 cm (3.9 - 5.3) LVPWd: 1.7 cm (0.6 - 1.1) EDV(Teich): 46 ml IVSs: 2.0 cm LVIDs: 1.8 cm LVPWs: 2.0 cm %IVS Thck: 20 % ESV(Teich): 9 ml EF(Teich): 80 % %FS: 47 % SV(Teich): 37 ml RVIDd: 3.2 cm (< 3.3) IVC: 25.49 mm Ao Diam: 4.2 cm (2.0 - 3.7) LA Diam: 3.3 cm (2.7 - 3.8) AV Cusp: 1.8 cm (1.5 - 2.6) EPSS: 0.6 cm MV E Hayes: 0.56 m/s MV DecT: 275 ms MV Dec [place]: 2.0 m/s MV A [place]: 0.25 m/s MV E/A Ratio: 2.25 MV PHT: 80 ms MR Vmax: 1.02 m/s MR maxP.13 mmHg AV Vmax: 1.18 m/s AV maxP.57 mmHg TR Vmax: 1.82 m/s TR maxP.23 mmHg RAP: 5.00 mmHg RVSP: 18.23 mmHg MV EF SLOPE: 137.53 mm/s (70 - 150) MV EXCURSION: 18.74 mm (> 18.000) FINDINGS -------- This was a technically difficult study with suboptimal views. The left ventricular size is normal. There is severe concentric left ventricular hypertrophy. Ove rall left ventricular systolic function is normal with, an EF between 55 - 60 %. The right ventricle is normal in size. The left atrial size is normal. The right atrial size is normal. Lumason used The aortic valve is trileaflet and appears structurally normal. The mitral valve is normal. There is trace mitral regurgitation. The tricuspid valve appears structurally normal. Trace tricuspid regurgitation present. Right cara tricular systolic pressure is normal at < 35 mmHg. There is no pulmonic regurgitation present. The aortic root and ascending aorta are dilated measuring up to 4.7 cm The inferior vena cava is mildly dilated. There is no pericardial effusion. CONCLUSIONS -------- 1. The left ventricular size is normal. 2. There is severe concentric left ventricular hypertrophy. 3. Overall left ventricular systolic function is normal with, an EF between 55 - 60 %. 4. There is trace mitral regurgitation. 5. Trace tricuspid regurgitation present. 6. The aortic root and ascending aorta are dilated measuring up to 4.7 cm 7. The inferior vena cava is mildly dilated. 8. There is no pericardial effusion. [employer]ENT: Chantal Ferrer RDCS
--- NOTE | 2021-05-25 18:38 | P.PN ---
Progress Note - Text Progress Note Date: 05/25/21 (delayed charting seen at 1130) Hospitalist Interval Note Patient seen and examined at bedside. No additional chest discomfort at this time. Denies any shortness of breath or nausea. Feels as though he has had this symptoms are quite some time and has been breath-holding to decrease his symptoms. Vital signs reviewed General: non toxic, no distress, appears at stated age Derm: warm, dry Head: atraumatic, normocephalic, symmetric Eyes: EOMI, no lid lag, anicteric sclera Mouth: no lip lesion, mucus membranes moist Cardiovascular: S1S2 reg, no murmur, positive posterior tibial pulse bilateral, Lungs: CTA bilateral, no rhonchi, no rales , no accessory muscle use Abdominal: soft, nontender to palpation, no guarding, no appreciable organomegaly Ext: no gross muscle atrophy, no edema, no contractures Neuro: CN II-XI grossly intact, no focal neuro deficits Psych: Alert, oriented, appropriate affect Assessment/Plan: SVT, non-STEMI type II -Plan is for cardiac cath today, continue telemetry monitoring, recheck free T4 [facility] Obesity with BMI 38.1 DM HTN This is an update note for patient , for full note on see H and P. There is no charge associated with this note.
[2021-05-25 20:41] LABS: Glucose,Whole Blood 95 mg/dL (75-99)
[2021-05-25] MEDS: DILTIAZEM 125 MG in SODIUM CHLORIDE 0.9% 100 ML IV SCH (21:59)
[2021-05-26] MEDS: INSULIN ASPART (NovoLOG) 100 UNIT/ML VIAL SQ SCH ×3 (04:37→17:04)
[2021-05-26] MEDS: lisinopriL 20 MG TAB PO SCH (05:28)
[2021-05-26] MEDS: PANTOPRAZOLE 40 MG TABLET PO SCH (05:28)
[2021-05-26] MEDS ORDERED: ATORVASTATIN 80 MG TAB PO ONE (06:00)
[2021-05-26] MEDS ORDERED: ASPIRIN 325 MG TAB PO ONE (06:00)
[2021-05-26] MEDS ORDERED: HEPARIN SODIUM,PORCINE 2,500 UNIT in SODIUM CHLORIDE 0.9% 250 ML IRRIGATION PRN (07:00)
[2021-05-26] MEDS ORDERED: HEPARIN SODIUM,PORCINE 10,000 UNIT in SODIUM CHLORIDE 0.9% 1,000 ML IRRIGATION PRN (07:00)
[2021-05-26] MEDS ORDERED: LIDOCAINE 1% INJ 10MG/ML (20 ML MDV) ONE (08:09)
[2021-05-26] MEDS ORDERED: VERAPAMIL 2.5 MG/ML 2 ML AMP ONE (08:10)
[2021-05-26] MEDS: METOPROLOL TARTRATE 25 MG TAB PO SCH (08:41)
[2021-05-26] MEDS ORDERED: IV FLUID CONTINUATION 800 ML IV ONE (08:51)
[2021-05-26] MEDS ORDERED: VERAPAMIL SYRINGE (5 MG/10 ML) IV ONE (08:51)
[2021-05-26] MEDS ORDERED: MIDAZOLAM 2 MG/2 ML VIAL IV ONE (08:51)
[2021-05-26] MEDS ORDERED: LIDOCAINE 1% INJ 10MG/ML (20 ML MDV) SQ ONE (08:59)
[2021-05-26] MEDS: VERAPAMIL SYRINGE (5 MG/10 ML) IV ONE ×2 (09:02→09:13)
[2021-05-26] MEDS ORDERED: HEPARIN SODIUM 1,000 UN/ML (10ML VL) IV ONE (09:03)
[2021-05-26] MEDS ORDERED: IOPAMIDOL-370 100ML BTL INJ ONE (09:13)
--- NOTE | 2021-05-26 10:49 | CC ---
CARDIAC CATHETERIZATION REPORT DATE OF SERVICE: 05/26/2021 PROCEDURE: Left heart catheterization and coronary angiography. PERFORMED BY: Dr. Percy Barrientos. Moderate conscious sedation time was 18 minutes. Patient was administered Versed. Oxygen saturation, hemodynamics and EKG were monitored closely. CLINICAL INFORMATION: Mr. Hipolito Rodríguez is a 60-year-old obese gentleman with hypertension, diabetes, hyperlipidemia, who came into the hospital with chest pain, had paroxysmal supraventricular tachycardia and short runs of atrial fibrillation. His troponin went up, he had chest pain and a stress test on the of this month at [facility] revealed a question of anteroseptal reversible defect suggestive of ischemia. Ejection fraction was preserved. He was advised cardiac cath because of abnormal stress test, chest pain and troponin elevation. The risks, benefits, options, rationale were explained to the patient. He understood all details and wished to proceed with the procedure. PROCEDURE NOTE: Under local anesthesia and strict aseptic precautions, a 6-Mongolian introducer was placed in the right radial artery. Using a JL3.5 and JR4 catheters, I performed coronary angiography and the same right catheter was used to check LV pressures. LV gram was not performed. The sheath was taken out and TR band applied as per protocol. The saturation in the fingers of the right hand was 94%. Results were discussed with the patient and . He has no significant obstructive CAD, no intervention. He can be discharged later on today with risk factor modification. CARDIAC CATHETERIZATION FINDINGS: Left ventricular end-diastolic pressure was 12 mmHg without any gradient across aortic valve. CORONARY ANGIOGRAPHY FINDINGS: RIGHT CORONARY ARTERY: Right coronary artery is a large dominant vessel. No significant disease. Distally bifurcates into a larger PLV, smaller PDA. No significant disease. Minor irregularities in the distal branches, but no significant obstructive disease noted. PLV is a very large vessel. LEFT MAIN: Left main coronary artery is a long patent disease-free vessel that trifurcates into LAD, ramus and circumflex. Left main itself is free of significant disease. LEFT ANTERIOR DESCENDING CORONARY ARTERY: Left anterior descending coronary artery is a good caliber vessel extends along the anterior wall, gives off septal and diagonal branches. Runs all the way to the apex, has minor irregularities in the distal one third. No significant disease. RAMUS INTERMEDIUS: This is a good caliber vessel that runs laterally, has minor irregularities. No significant disease. LEFT POSTERIOR CIRCUMFLEX CORONARY ARTERY: Good caliber vessel, has minor irregularities, gives off a first obtuse marginal and then continues in the PDA distribution, has minor irregularities. No significant disease. LEFT VENTRICULOGRAM: Was not performed. FINAL IMPRESSION: This patient has a right dominant system. Normal filling pressures. No gradient. Minor irregularities. No significant obstructive CAD. RECOMMENDATIONS: Findings were discussed with the patient and . Continued medical therapy with risk factor modification advised. He can be discharged when stable. MMODL / IJN: [id number] /
[2021-05-26 11:28] VITALS: TEMP 98.1
[2021-05-26 12:00] VITALS: RESP 16
[2021-05-26 12:21] LABS: Glucose,Whole Blood 95 mg/dL (75-99)
--- NOTE | 2021-05-26 12:31 | P.PN ---
Subjective Progress Note Date: 05/26/21 The patient is a 60-year-old male is currently admitted to the hospital for AVNRT and elevated troponins. The patient underwent coronary angiogram this morning as he recently had an abnormal stress test at [facility] and had mildly elevated troponins. Angiogram showed a right dominant system with no significant coronary artery disease. Echocardiogram revealed normal LV function with ascending aorta at 4.7 cm. The patient was interviewed and examined lying comfortably in bed. He states he tolerated the procedure well. He has been up ambulating around his room without issue. GENERAL: Well-appearing, well-nourished and in no acute distress. NECK: Supple without JVD or thyromegaly. LUNGS: Breath sounds clear to auscultation bilaterally. Respiration equal and unlabored. No wheezes, rales or rhonchi. HEART: Regular rate and rhythm without murmurs, rubs or gallops. S1 and S2 heard. EXTREMITIES: Normal range of motion, no edema. No clubbing or cyanosis. Periph eral pulses intact and strong. 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 Le for discussion regarding AVNRT ablation The patient has been seen and evaluated. Plan of care has been reviewed and agreed upon by Dr Le. Objective - Vital Signs Vital signs: Vital Signs Temp 98.1 F 05/26/21 11:00 Pulse 45 L 05/26/21 11:30 Resp 16 05/26/21 11:30 BP 143/87 05/26/21 11:30 Pulse Ox 96 05/26/21 11:30 Intake & Output 05/25/21 05/26/21 05/26/21 18:59 06:59 18:59 Intake Total 71.86 450 100 Balance 71.86 450 100 Weight 153.8 kg Intake: IV 100 Intake, IV Titration 71.86 450 Amount Heparin Sod,Pork in 0.45% 71.86 NaCl 25,000 unit In 0.45 % NaCl 1 250ml.bag @ 6.54 UNITS/KG/HR 10.027 mls/ hr IV .Q24H [facility] Rx#: [id number] Sodium Chloride 0.9% 1, 450 000 ml In Empty Bag 1 bag @ 1 ML/KG/HR 153.314 mls /hr IV .Q6H32M [facility] Rx#: [id number] Other: # Voids 1 1 - Labs CBC & Chem 7: 05/24/21 22:15 05/24/21 22:15
--- NOTE | 2021-05-26 13:49 | P.DS ---
Providers Date of admission: 05/24/21 22:58 Expected date of discharge: 05/26/21 Attending physician: Madhuri Brady MD Consults: 05/24/21 22:58 Consult Physician Urgent Consulting Provider: Hardik Burnett Consult Reason/Comments: svt,afib,acs Do you want consulting provider notified?: Yes Primary care physician: Junior Schwartz Hospital Course: Discharge Diagnosis: AV reentrant tachycardia Elevated troponin secondary to demand ischemia. Type II non-ST segment elevated myocardial infarction. Elevated TSH with normal free T4 Aortic arch aneurysm Obesity with BMI 38.2 Diabetes Obstructive sleep apnea Hypertension COPD without exacerbation Hospital Course: Patient is a 60-year-old male for history of diabetes mellitus type 2, hypertension, and prior COVID infection who presented from his primary care doctor's office secondary to supraventricular tachycardia. He had been at [facility] the day prior in the emergency room and had undergone a nuclear stress test which had possible reversible ischemia. They did not feel this was a true positivity and subsequently discharged. He also had undergone a CT angiogram which was negative for acute PE. He was sent from Dr. Schwartz's office to the hospital secondary to SVT. He was again found a heart rate in the 150s. He was started on a Cardizem drip. Initial troponin was slightly elevated. He was admitted and cardiology was consulted. Troponins remained flat more consistent with stress-induced ischemia. He converted to normal sinus rhythm and his Cardizem drip was stopped. He was seen by cardiology and underwent a cardiac catheterization which did not show any need for urgent intervention. He underwent echocardiogram which did not show significant valvular disease and demonstrated a preserved ejection fraction at 60%. It again noted and aortic aneurysm of 4.7 cm. His heart rate remained normal overnight. He was determined stable for discharge. He will decrease his metoprolol and increase his lisinopril if he was noted to have sinus bradycardia on the monitor. Of note he did have hypokalemia and hypomagnesemia noted after [facility] which had resolved here. He will have a repeat BMP and magnesium level in 1 week. He should have a repeat TSH in 4 weeks to assess for progression to overt hypothyroidism. He will follow with Dr. Crawford in [address] Schwartz in 2-3 days. Patient seen and examined at bedside. Feeling fine. No additional palpitations. No chest pain. No shortness of breath. No nausea or vomiting. All questions answered. Vital signs reviewed and stable. General: non toxic, no distress, appears at stated age Derm: warm, dry Head: atraumatic, normocephalic, symmetric Eyes: EOMI, no lid lag, anicteric sclera Mouth: no lip lesion, mucus membranes moist Cardiovascular: S1S2 reg, no murmur, positive posterior tibial pulse bilateral, Lungs: CTA bilateral, no rhonchi, no rales , no accessory muscle use Abdominal: soft, nontender to palpation, no guarding, no appreciable organomegaly Ext: no gross muscle atrophy, no edema, no contractures Neuro: CN II-XI grossly intact, no focal neuro deficits Psych: Alert, oriented, appropriate affect A total of 28 minutes of time were spent preparing this complex discharge summary . Patient Condition at Discharge: Stable Plan - Discharge Summary Discharge Rx Participant: No New Discharge Prescriptions: New Lisinopril [Prinivil] 30 mg PO DAILY #90 tab Metoprolol Tartrate [Lopressor] 12.5 mg PO BID #60 dose Continue Nystatin 100,000Unit/gm Cream [Mycostatin Cream] 1 applic TOPICAL BID Lansoprazole [Prevacid] 30 mg PO DAILY Krill/Hendricks-3/Dha/Epa/Lipids [Krill Oil 350 mg Softgel] 1 tab PO DAILY Ibuprofen [Motrin Ib] 200 mg PO Q6H PRN PRN Reason: Pain Azelastine HCl [Astepro] 2 spray NASAL BID Atorvastatin [Lipitor] 10 mg PO DAILY Aspirin [Tollette Aspirin EC] 81 mg PO DAILY Albuterol Sulfate [Albuterol Sulfate Hfa] 2 puff PO QID PRN PRN Reason: Shortness Of Breath Cetirizine HCl [Zyrtec] 10 mg PO DAILY Mupirocin [Mupirocin 2%] 1 applic NASAL BID Budesonide-Formot 160-4.5 Mcg [Symbicort 160-4.5 Mcg Inhaler] 2 puff INHALATION RT-BID Empagliflozin [Jardiance] 25 mg PO DAILY Albuterol Nebulized [Ventolin Nebulized] 3 ml INHALATION RT-TID Discontinued lisinopriL [Zestril] 20 mg PO DAILY Metoprolol Tartrate [Lopressor] 25 mg PO BID Discharge Medication List Albuterol Nebulized [Ventolin Nebulized] 3 ml INHALATION RT-TID 05/24/21 [History] Albuterol Sulfate [Albuterol Sulfate Hfa] 2 puff PO QID PRN 05/24/21 [History] Aspirin [Tollette Aspirin EC] 81 mg PO DAILY 05/24/21 [History] Atorvastatin [Lipitor] 10 mg PO DAILY 05/24/21 [History] Azelastine HCl [Astepro] 2 spray NASAL BID 05/24/21 [History] Budesonide-Formot 160-4.5 Mcg [Symbicort 160-4.5 Mcg Inhaler] 2 puff INHALATION RT-BID 05/24/21 [History] Cetirizine HCl [Zyrtec] 10 mg PO DAILY 05/24/21 [History] Empagliflozin [Jardiance] 25 mg PO DAILY 05/24/21 [History] Ibuprofen [Motrin Ib] 200 mg PO Q6H PRN 05/24/21 [History] Krill/Hendricks-3/Dha/Epa/Lipids [Krill Oil 350 mg Softgel] 1 tab PO DAILY 05/24/21 [History] Lansoprazole [Prevacid] 30 mg PO DAILY 05/24/21 [History] Mupirocin [Mupirocin 2%] 1 applic NASAL BID 05/24/21 [History] Nystatin 100,000Unit/gm Cream [Mycostatin Cream] 1 applic TOPICAL BID 05/24/21 [History] Lisinopril [Prinivil] 30 mg PO DAILY #90 tab 05/26/21 [Rx] Metoprolol Tartrate [Lopressor] 12.5 mg PO BID #60 dose 05/26/21 [Rx] Follow up Appointment(s)/Referral(s): Gorge Le MD [STAFF PHYSICIAN] - 2 Weeks Junior Schwartz MD [Primary Care Provider] - 1-2 days Ambulatory/Diagnostic Orders: Basic Metabolic Panel [LAB.AMB] Time Frame: 5 Days, Location: None Selected Magnesium [LAB.AMB] Time Frame: 5 Days, Location: None Selected Miscellaneous Lab Order [LAB.AMB] Location: None Selected Activity/Diet/Wound Care/Special Instructions: Activity: as tolerated Diet: heart healthy Special Instructions: BMP (potassium and kidneys) and Mg in 5-7 days TSH (thyroid) and Free T 4 in 4 weeks. Discharge Disposition: HOME SELF-CARE
[2021-05-26 16:13] LABS: Glucose,Whole Blood 98 mg/dL (75-99)
[2021-05-26 17:02] VITALS: BP 155/92; PULSE 56
[2021-05-26] MEDS ORDERED: METOPROLOL TARTRATE 12.5 MG TAB PO SCH (21:00)
[2021-05-27] MEDS ORDERED: ASPIRIN 325 MG TAB PO SCH (09:00)
[2021-05-27] MEDS ORDERED: ATORVASTATIN 40 MG TAB PO SCH (09:00)
[2021-05-27] MEDS ORDERED: lisinopriL 10 MG TAB PO SCH (09:00)
== END 2021-05-26 18:44 | disposition home or self-care (01) | DRG 282 ==
LOC: EC 21:21 → 3SCARD 22:58
PROVIDERS: ADMIT Internal Medicine; ATTEND Internal Medicine
PROC: B2111ZZ Fluoroscopy of Multiple Coronary Arteries using Low Osmolar Contrast (ICD-10-PCS; 2021-05-26)
PROC: 4A023N7 Measurement of Cardiac Sampling and Pressure, Left Heart, Percutaneous Approach (ICD-10-PCS; principal; 2021-05-26 08:30)
DX: I47.1 Supraventricular tachycardia (principal); I21.A1 Myocardial infarction type 2; Z86.16 Personal history of COVID-19; Z79.899 Other long term (current) drug therapy; Z79.84 Long term (current) use of oral hypoglycemic drugs; Z79.82 Long term (current) use of aspirin; Z79.51 Long term (current) use of inhaled steroids; Z87.891 Personal history of nicotine dependence; I48.91 Unspecified atrial fibrillation; G47.33 Obstructive sleep apnea (adult) (pediatric); E87.6 Hypokalemia; E83.42 Hypomagnesemia; E78.5 Hyperlipidemia, unspecified; E66.9 Obesity, unspecified; E11.9 Type 2 diabetes mellitus without complications; I10 Essential (primary) hypertension; I25.10 Atherosclerotic heart disease of native coronary artery without angina pectoris; J44.9 Chronic obstructive pulmonary disease, unspecified; I71.2 Thoracic aortic aneurysm, without rupture; Z68.38 Body mass index [BMI] 38.0-38.9, adult
CPT/HCPCS: 36415; 80053; 80061; 82550; 82553; 83735; 83880; 84100; 84439; 84443; 84484; 85025; 85610; 85730; 93005; 93306; 93458; 96361; 96374; 96375; 99291

== ENCOUNTER 2021-08-07 07:14 | Day surgery (SDC) | payer OTHER ==
[2021-08-05 11:32] VITALS: BMI 37.7
[~2021-08-07 07:14] MED LIST: HYDROmorphone 0.5 MG/0.5 ML SYRINGE IVP PRN; LACTATED RINGERS 1,000 ML IV SCH; LIDOCAINE 1% (10MG/ML) FOR IV START INTRADERMA PRN
[2021-08-07 07:48] VITALS: RESP 16; TEMP 97.6
[2021-08-07 07:51] LABS: Glucose,Whole Blood 110 mg/dL (75-99)
[2021-08-07] MEDS ORDERED: PROPOFOL 10 MG/ML 20 ML VIAL IV ONE (08:04)
[2021-08-07] MEDS ORDERED: LIDOCAINE 1% INJ 10MG/ML (20 ML MDV) ONE (08:04)
--- NOTE | 2021-08-07 08:22 | P.PCN ---
Date of Procedure: 08/07/21 Procedure(s) Performed: BRIEF HISTORY: Patient is a 61-year-old pleasant male scheduled for an elective colonoscopy as a part of screening for colon rectal neoplasia. Her last coloscopy was 8 years ago. PROCEDURE PERFORMED: Colonoscopy with snare polypectomy. PREOPERATIVE DIAGNOSIS: Screening for colon cancer. IV sedation per Anesthesia. PROCEDURE: After informed consent was obtained, the patient, was brought into the endoscopy unit. IV sedation was administered by Anesthesia under continuous monitoring. Digital rectal examination was normal. Initially the Olympus CF-160 flexible video colonoscope was then inserted in the rectum, gradually advanced into the cecum without any difficulty. Careful examination was performed as the scope was gradually being withdrawn. Ileocecal valve and the appendiceal orifice were visualized and appeared normal. Prep was excellent. The base of the cecum there was a 7 mm sessile polyp removed by snare polypectomy. Mucosa of the cecum, ascending colon, transverse colon, appeared normal. In the descending colon there was a 5 limited polyp that was removed by snare polypectomy. In the sigmoid: There was a 1 cm pegylated polyp removed by snare polypectomy. Rest of the descending colon, sigmoid colon, and rectum appeared normal. Retroflexion was performed in the rectum and no lesions were seen. The patient tolerated the procedure well. IMPRESSION: 7 mm cecal polyp status post polypectomy 5 mm descending colon polyp status post polypectomy 1 cm pedunculated sigmoid colon polyp status post polypectomy RECOMMENDATIONS: Findings of this examination were discussed with the patient as well as his family. He was advised to follow with the biopsy results and based the biopsy results have a repeat surveillance colonoscopy in 3 years from now
[2021-08-07 08:54] VITALS: BP 113/60; PULSE 66
== END 2021-08-07 09:12 | disposition home or self-care (01) ==
LOC: ORWHC2ENDO 07:14
PROVIDERS: ATTEND Internal Medicine Gastroenterology
DX: Z12.11 Encounter for screening for malignant neoplasm of colon (principal); D12.4 Benign neoplasm of descending colon; D12.5 Benign neoplasm of sigmoid colon
CPT/HCPCS: 45385; 88305; J2001; J2704

== ENCOUNTER → 2021-08-26 | Outpatient (CLI) | payer OTHER ==
[2021-08-26 09:20] LABS: HCT 50.6 % (39.0-53.0); HGB 17.5 gm/dL (13.0-17.5); MCH 32.2 pg (25.0-35.0); MCHC 34.5 g/dL (31.0-37.0); MCV 93.1 fL (80.0-100.0); Mean Platelet Volume 7.9; Platelet Count 203 k/uL (150-450); RBC 5.43 m/uL (4.30-5.90); RDW 14.2 % (11.5-15.5); WBC 6.7 k/uL (3.8-10.6)
[2021-08-26 09:28] LABS: Potassium 4.6 mmol/L (3.5-5.1)
== END | disposition home or self-care (01) ==
LOC: LABPAT 07:36
PROVIDERS: ATTEND Internal Medicine Clinical Cardiac Electrophysiology
DX: Z01.812 Encounter for preprocedural laboratory examination (principal); I47.1 Supraventricular tachycardia
CPT/HCPCS: 80051; 82565; 84520; 85027

== ENCOUNTER → 2021-08-26 | Outpatient (CLI) | payer OTHER ==
--- NOTE | 2021-08-26 08:04 | US ---
EXAMINATION TYPE: US duplex aorta DATE OF EXAM: 08/26/2021 COMPARISON: NONE CLINICAL HISTORY: 61-year-old male I71.9 Aortic aneurysm. TECHNIQUE: Multiple sonographic images of the abdominal aorta are obtained. FINDINGS: EXAM MEASUREMENTS: Abdominal Aorta: Proximal: 3.2 x 3.1 cm. Mid: 2.1 x 2.1 cm. Distal: 2.3 x 2.2 cm. 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 Incidental echogenic liver. IMPRESSION: 1. Mildly aneurysmal upper abdominal aorta measuring up to 3.2 cm. Note the technical exam limitation s due to large body habitus and overlying bowel gas. The aortic bifurcation and common iliac arteries are obscured. 2. Incidental hepatic steatosis.
== END | disposition home or self-care (01) ==
LOC: RADUSWWP 07:01
PROVIDERS: ATTEND Family Medicine
DX: I71.4 Abdominal aortic aneurysm, without rupture (principal); K76.0 Fatty (change of) liver, not elsewhere classified
CPT/HCPCS: 93979

== ENCOUNTER → 2021-08-26 | Outpatient (CLI) | payer OTHER ==
[2021-08-26 16:37] LABS: T4, Free (Free Thyroxine) 1.05 ng/dL (0.800-1.800)
== END | disposition home or self-care (01) ==
LOC: LABWHC1 07:39
PROVIDERS: ATTEND Nurse Practitioner Adult Health
DX: E03.9 Hypothyroidism, unspecified (principal)
CPT/HCPCS: 36415; 84439; 84443; 84481

== ENCOUNTER 2021-09-02 14:09 | Day surgery (SDC) | payer OTHER ==
[2021-08-26 09:16] VITALS: BMI 38.2
[2021-09-02 15:00] LABS: Glucose,Whole Blood 95 mg/dL (75-99)
[2021-09-02] MEDS: SODIUM CHLORIDE 0.9% 1,000 ML IV SCH (15:05)
--- NOTE | 2021-09-02 16:48 | P.HPCAR ---
History of Present Illness This is Dr. Le dictating an H/P on this patient The patient was interviewed and examined IMPRESSION / ASSESSMENT: Recurrent palpitations on beta blockers Associated with elevated troponins Mild CAD and small vessel disease Abdominal aortic aneurysm Thoracic aneurysm Hypertension and severe LVH with preserved LV systolic function Type 2 diabetes Obesity Patient complains of a vague discomfort localized to a small area in the chest He has not had any palpitations in the last 3 days after stopping metoprolol He has a mild headache PLAN: Proceed with diagnostic EP study and efficacy ablation for SVT HPI Patient says he feels weird after discontinuing beta blockers 3 days back He also has a lumen of a headache Weight localized mild discomfort in the chest in the upper left area Does not appear to be short of breath No respiratory distress ROS: No fever chills or rigors, no cough, phlegm or expectoration, no nausea, vomiting or diarrhea, no hematuria, dysuria, no musculoskeletal complaints, no strokes or seizures, no skin lesions. EXAMINATION: Afebrile 98.2F pulse rate in the 80s, blood pressure 134/79 mmHg pulse ox 96% on room air Normal heart sounds normal S1 normal S2 Breath sounds are clear no rhonchi no crackles Abdomen soft No edema in the lower extremities No JVD REVIEW OF LABS, ECG & MEDICAL DATA Labs from August 26 reviewed. Sodium 140, potassium 4.6, BUN 23, creatinine 1.25 Normal liver function LDL 52, HDL 28 TSH normal at 3.3 Physical Exam Vitals: Vital Signs Temp Pulse Resp BP Pulse Ox 09/02/21 15:03 98.2 F 84 18 134/79 96 Intake and Output 09/02/21 09/02/21 09/02/21 06:59 14:59 22:59 Intake Total 100 Balance 100 Intake: IV 100 Past Medical History Past Medical History: Diabetes Mellitus, GERD/Reflux, Hypertension, Pneumonia, Sleep Apnea/CPAP/BIPAP Additional Past Medical History / Comment(s): See Dr Le's H&P. Hx Covid (with Pneumonia) 01/23, thoracic descending abdominal anuersym approx 5 cm diagnosed 01/23, CPAP use. History of Any Multi-Drug Resistant Organisms: None Reported Past Surgical History: Appendectomy, Heart Catheterization, Orthopedic Surgery Additional Past Surgical History / Comment(s): Bilateral shoulder surgery, right elbow surgery with titanium staple in place. Past Anesthesia/Blood Transfusion Reactions: No Reported Reaction, Motion Sickness Additional Past Anesthesia/Blood Transfusion Reaction / Comment(s): Mother, son have high tolerance for opiates and require more anesthesia. Hx difficult to intubate per Anesthesiologist (prior to wgt loss). Past Psychological History: No Psychological Hx Reported Smoking Status: Former smoker Past Alcohol Use History: Rare Additional Past Alcohol Use History / Comment(s): Pipe or cigar 1-2 times a yr, none in 3 yrs. Past Drug Use History: None Reported - Past Family History Father Family Medical History: Cancer Additional Family Medical History / Comment(s): Melanoma cancer Son(s) Family Medical History: Cancer Family Family Medical History: AFIB Additional Family Medical History / Comment(s): Mother with A. fib, father with sudden unknown cause. Patient denies any premature CAD history in the family Physical Examination Vital Signs Temp Pulse Resp BP Pulse Ox 09/02/21 15:03 98.2 F 84 18 134/79 96 Intake and Output 09/02/21 09/02/21 09/02/21 06:59 14:59 22:59 Intake Total 100 Balance 100 Intake: IV 100 Results Current Medications Generic Name Dose Route Start Last Admin Trade Name Freq PRN Reason Stop Dose Admin Sodium Chloride 1,000 mls @ 20 mls/hr 09/02/21 06:29 09/02/21 15:05 Saline 0.9% IV 10/02/21 06:30 100 mls .Q24H AMINTA Administration Intake and Output 09/02/21 09/02/21 09/02/21 06:59 14:59 22:59 Intake Total 100 Balance 100 Intake: IV 100
[2021-09-02] MEDS ORDERED: fentaNYL (PF) 50 MCG/ML 2 ML AMP ONE (16:54)
[2021-09-02] MEDS ORDERED: PROPOFOL 10 MG/ML 20 ML VIAL IV ONE (16:54)
[2021-09-02] MEDS ORDERED: MIDAZOLAM 2 MG/2 ML VIAL ONE (16:54)
[2021-09-02] MEDS ORDERED: ISOPROTERENOL 250 MCG/1.25 ML SYR IV ONE (16:54)
[2021-09-02] MEDS ORDERED: LIDOCAINE 1% INJ 10MG/ML (20 ML MDV) ONE ×2 (17:22→18:03)
[2021-09-02] MEDS ORDERED: LIDOCAINE 1% INJ 10MG/ML (20 ML MDV) SQ ONE ×2 (17:31→18:00)
[2021-09-02] MEDS ORDERED: HEPARIN SODIUM (1,000 UNIT/ML) 1,000 UNIT in SODIUM CHLORIDE 0.9% 1,000 ML IRRIGATION ONE (19:21)
[2021-09-02] MEDS ORDERED: ACETAMINOPHEN TAB 325 MG TAB PO PRN (19:28)
--- NOTE | 2021-09-02 19:31 | P.PRLE ---
RE: Hipolito Rodríguez Dear Junior Rodríguez underwent a diagnostic EP study which revealed typical AV node reentrant tachycardia RF ablation was successfully performed and the tachycardia was rendered noninducible At this time I would hold beta blockers for a few weeks but I would put him on low-dose beta blockers in the future since he also has a thoracic aortic aneurysm However he could use a lower dose than what he is currently on Thank you for entrusting me with the care of the patient Warm regards Sincerely Gorge Le
--- NOTE | 2021-09-02 20:03 | CE ---
CARDIAC ELECTROPHYSIOLOGY REPORT Mr. Rodríguez is a 61-year-old male patient who has recurrent palpitations and has documented supraventricular tachycardia despite being on beta blockers. He also has a thoracic and abdominal aortic aneurysm. He has mild CAD. The patient is brought in for EP study and ablation. Patient was brought to the EP lab in a fasting state. Written informed consent was obtained prior to the procedure. The procedure performed under light conscious sedation. Venous sheaths were placed in the right and left femoral veins. Via these, diagnostic catheters were positioned in the high right atrium, His bundle area, right ventricle and coronary sinus. Baseline measurements were as follows: Sinus cycle length 851 milliseconds, TX interval mildly prolonged at 208 milliseconds, QRS 118 milliseconds and QT 431 milliseconds. AH interval 86 milliseconds and HV interval 54 milliseconds. Sinus node recovery times at 600 and 500 milliseconds were 1316 milliseconds and 1494 milliseconds. When pacing was performed at a cycle length of 400 milliseconds, echo beats were noted repeatedly that precluded measurements for sinus node recovery time. There were no delta waves. Slow pathway was noted at a paced cycle length of 400 milliseconds. AV node Wenckebach block 320 milliseconds. VA Wenckebach block 410 milliseconds. With straight pacing, SVT was induced, initially nonsustained and then subsequently sustained SVT. The VA times were short and were less than 60 milliseconds. The retrograde conduction was midline and decremental during ventricular pacing. A long deflectable sheath was used. An irrigated-tip catheter was used. Three- dimensional electroanatomic mapping of the slow pathway was performed. The His bundle cloud and the coronary sinus os were tagged. Slow pathway mapping was performed. RF ablation was performed. Successful RF site was at the roof of the coronary sinus and resulting in junctional rhythm. Thereafter, there was no evidence for slow pathway conduction. Isuprel was started. Atrial pacing was performed. Burst stimulation was performed. There was no evidence for slow pathway conduction, no echo beats and no SVT. Off Isuprel, there was no evidence of slow pathway conduction. AV node Wenckebach block off Isuprel was 380 milliseconds without evidence of slow pathway conduction. On Isuprel the AV node Wenckebach block was noted at 290 milliseconds from the coronary sinus and 260 milliseconds from the high right atrium. No evidence for T. VA Wenckebach block 360 milliseconds. All catheters were then removed and hemostasis was assured at the access sites. IMPRESSION: Diagnostic EP study revealing AV aguila re-entry as the mechanism of the tachycardia. Slow pathway mapping and ablation was performed and the slow pathway was eliminated and there was no further evidence for AV aguila reentrant tachycardia. PLAN: Hold beta blockers for a few weeks, but subsequently we will start low-dose beta blockers once again, since the patient does have a thoracic aortic aneurysm. MMODL / IJN: [id number] /
[2021-09-02] MEDS ORDERED: ACETAMINOPHEN IV (For NPO) 1,000 MG in EMPTY BAG 1 BAG IVPB ONE (20:15)
[2021-09-02] MEDS ORDERED: IBUPROFEN 400 MG TAB PO PRN (22:19)
[2021-09-02] MEDS ORDERED: NAPROXEN 250 MG TAB PO PRN (22:19)
[2021-09-02] MEDS ORDERED: LORATADINE 10 MG TAB PO SCH (22:30)
[2021-09-02] MEDS ORDERED: MONTELUKAST 10 MG TAB PO SCH (22:30)
[2021-09-02] MEDS ORDERED: lisinopriL 10 MG TAB PO SCH (22:30)
[2021-09-02] MEDS: ASPIRIN 81 MG PO SCH (22:56)
[2021-09-03] MEDS ORDERED: PANTOPRAZOLE 40 MG TABLET PO SCH (07:30)
[2021-09-03 07:51] VITALS: BP 130/85; PULSE 62; RESP 16; TEMP 97.5
[2021-09-03] MEDS ORDERED: AZELASTINE 137MCG/SPRAY NASAL PRN (09:00)
[2021-09-03] MEDS ORDERED: ATORVASTATIN 10 MG TAB PO SCH (09:00)
[2021-09-03] MEDS ORDERED: FLUTICASONE 50MCG/SPRAY NASAL 16GM EA NOSTRIL PRN (09:00)
[2021-09-03] MEDS ORDERED: NON FORMULARY DRUG (Empagliflozin [Jardiance] 25 MG Tablet) PO SCH (09:00)
[2021-09-03] MEDS: ASPIRIN 81 MG PO SCH (09:08)
[2021-09-03] MEDS: SODIUM CHLORIDE 0.9% 1,000 ML IV SCH (11:20)
--- NOTE | 2021-09-03 15:28 | P.DS ---
Providers Attending physician: Gorge Le Primary care physician: [facility] Course: Patient is doing well. He is ambulating around the room No chest discomfort no dizziness no lightheadedness Minimal discomfort in the right groin On examination afebrile 97.5F, pulse rate in the most the 60s and 70s Breath sounds are clear no rhonchi no crackles Normal heart sounds normal S1 normal S2 Extremities are warm no edema No hematoma in either groin Twelve-lead EKG shows sinus rhythm with a normal W[place] interval. 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 abdominal aorta Hypertension Plan Resume beta blockers Continue all other cardiac medications Follow-up in 1-2 weeks Patient will go home today Plan - Discharge Summary Discharge Rx Participant: Yes New Discharge Prescriptions: Discontinued Krill/[place]-3/Dha/Epa/Lipids [Krill Oil 350 mg Softgel] 1 tab PO DAILY Metoprolol Tartrate [Lopressor] 50 mg PO QAM Metoprolol Tartrate [Lopressor] 25 mg PO DIRECTED PRN PRN Reason: SVT Metoprolol Tartrate [Lopressor] 25 mg PO HS No Action Nystatin 100,000Unit/gm Cream [Mycostatin Cream] 1 applic TOPICAL BID PRN PRN Reason: yeast infection skin Lansoprazole [Prevacid] 30 mg PO DAILY Ibuprofen [Motrin Ib] 200 - 800 mg PO Q6H PRN PRN Reason: Pain Azelastine HCl [Astepro] 2 spray NASAL BID PRN PRN Reason: nasal sx Atorvastatin [Lipitor] 10 mg PO DAILY Aspirin [Stark Aspirin EC] 81 mg PO BID Cetirizine HCl [Zyrtec] 10 mg PO BID Montelukast Sodium [Singulair] 10 mg PO HS Fluticasone Nasal [place] [Flonase Nasal [place]] 2 spray EA NOSTRIL DAILY PRN PRN Reason: nasal sx Mupirocin [Mupirocin 2%] 1 applic NASAL BID PRN PRN Reason: Nasal Pimples Empagliflozin [Jardiance] 25 mg PO DAILY Lisinopril [Prinivil] 30 mg PO HS Naproxen Sodium [Aleve] 440 mg PO BID PRN PRN Reason: Pain Discharge Medication List Aspirin [Stark Aspirin EC] 81 mg PO BID 05/24/21 [History] Atorvastatin [Lipitor] 10 mg PO DAILY 05/24/21 [History] Azelastine HCl [Astepro] 2 spray NASAL BID PRN 05/24/21 [History] Cetirizine HCl [Zyrtec] 10 mg PO BID 05/24/21 [History] Empagliflozin [Jardiance] 25 mg PO DAILY 05/24/21 [History] Ibuprofen [Motrin Ib] 200 - 800 mg PO Q6H PRN 05/24/21 [History] Lansoprazole [Prevacid] 30 mg PO DAILY 05/24/21 [History] Mupirocin [Mupirocin 2%] 1 applic NASAL BID PRN 05/24/21 [History] Nystatin 100,000Unit/gm Cream [Mycostatin Cream] 1 applic TOPICAL BID PRN 05/24/21 [History] Fluticasone Nasal [place] [Flonase Nasal [place]] 2 spray EA NOSTRIL DAILY PRN 08/05/21 [History] Lisinopril [Prinivil] 30 mg PO HS 08/05/21 [History] Montelukast Sodium [Singulair] 10 mg PO HS 08/05/21 [History] Naproxen Sodium [Aleve] 440 mg PO BID PRN 08/05/21 [History] Follow up Appointment(s)/Referral(s): Gorge Le MD [STAFF PHYSICIAN] - 2 Weeks (office enrique call patient with appointment ) Patient Instructions/Handouts: Cardiac Ablation (DC) Activity/Diet/Wound Care/Special Instructions: Post EP study - Ablation instructions 1. Keep access sites dry for 2 days. 2. No heavy lifting or straining for 2 days. 3. Avoid bending the hips repeatedly for 2 days. 4. You may go up and down stairs slowly Call if the following is noted 1. Bleeding, increasing swelling or pain at the access sites. 2. Increasing chest discomfort, especially upon taking a deep breath. 3. Increasing shortness of breath, at rest or with exertion. 4. Undue cough / phlegm 5. Difficulty or pain while swallowing. 6. Pain or change in color in the extremities. 7. Fever, chills, rigors. 8. Increasing headache or neurologic symptoms. 9. Dizziness, fainting, palpitations Please ignore beta jessi recommendations Continue beta blockers unchanged Home blood pressure monitoring Continue other medications Discharge Disposition: HOME SELF-CARE
== END 2021-09-03 12:41 | disposition home or self-care (01) ==
LOC: CATHEP 14:09 → 6NMEDSUR 19:34 → CATHEP 09-03 12:41
PROVIDERS: ATTEND Internal Medicine Clinical Cardiac Electrophysiology
DX: I47.1 Supraventricular tachycardia (principal); Z20.822 Contact with and (suspected) exposure to COVID-19
CPT/HCPCS: 93623; 93613; 93653; 87635; C1894; C1769 ×2; C1760 ×2; C1766; C1730 ×3; C1732; J2250; J2001; J3010; J1644; J2704

== ENCOUNTER → 2023-08-21 | Outpatient (CLI) | payer BC ==
[2023-08-21 15:35] LABS: Basophils # (A) 0.07 X 10*3/uL (0.00-0.10); Basophils % (A) 0.9 %; Eosinophils # (A) 0.24 X 10*3/uL (0.04-0.35); Eosinophils % (A) 2.9 %; HCT 53.6 % (39.6-50.0); HGB 17.6 g/dL (13.0-17.0); Lymphocytes # (A) 1.79 X 10*3/uL (0.90-5.00); Lymphocytes % (A) 21.8 %; MCH 31.5 pg (27.0-32.0); MCHC 32.8 g/dL (32.0-37.0); MCV 95.9 FL (80.0-97.0); Mean Platelet Volume 10.3 FL (9.5-12.2); Monocytes # (A) 0.82 X 10*3/uL (0.20-1.00); NRBC Per 100 WBC 0 X 10*3/uL (0.00-0.01); Neutrophils # (A) 5.25 X 10*3/uL (1.80-7.70); Neutrophils % (A) 63.8 %; Platelet Count 222 X 10*3/uL (140-440); RBC 5.59 X 10*6/uL (4.40-5.60); RDW 13.6 % (11.5-14.5); WBC 8.22 X 10*3/uL (4.50-10.00)
[2023-08-21 16:07] LABS: ALT 31 U/L (10-49); AST 23 U/L (14-35); Albumin 4.4 g/dL (3.8-4.9); Albumin/Globulin Ratio 1.69 Ratio (1.60-3.17); Alkaline Phosphatase 78 U/L (41-126); BUN/Creat Ratio 18.08 Ratio (12.00-20.00); Blood Urea Nitrogen 21.7 mg/dL (9.0-27.0); Calcium 9.8 mg/dL (8.7-10.3); Carbon Dioxide 26.6 mmol/L (21.6-31.8); Chloride 104 mmol/L (96-109); Chol/HDL Ratio 2.62 Ratio; Creatine Kinase 142 U/L (35-257); Globulin 2.6 g/dL (1.6-3.3); Glucose 98 mg/dL (70-110); LDL Cholesterol,Calculated 41.8 mg/dL (0.0-131.0); Potassium 5.6 mmol/L (3.5-5.5); Prostate Specific Antigen 1.05 ng/mL (0.000-4.500); Sodium 141 mmol/L (135-145); T4, Free (Free Thyroxine) 0.99 ng/dL (0.80-1.80); Total Bilirubin 0.4 mg/dL (0.3-1.2)
== END | disposition home or self-care (01) ==
LOC: LABWHC1 09:44
PROVIDERS: ATTEND Family Medicine
DX: Z12.5 Encounter for screening for malignant neoplasm of prostate (principal); Z77.011 Contact with and (suspected) exposure to lead; I10 Essential (primary) hypertension; E78.5 Hyperlipidemia, unspecified
CPT/HCPCS: 36415; 80053; 80061; 82550; 83655; 84153; 84439; 84443; 85025